=== PATIENT | female | born 1950 | race Caucasian/White ===

== ENCOUNTER → 2018-06-17 | Outpatient (CLI) | payer MEDICARE ==
--- NOTE | 2018-06-17 12:20 | MM ---
Reason for exam: clinical finding. History: Patient is postmenopausal. Family history of breast cancer in 2 maternal aunts. Benign excisional biopsy of the right breast, 1971. Physical Findings: Nurse Summary: 3 x 4cm nodule in the right breast at 12 o'clock (nurse ts). MG 3D Diag Mammo W/Cad GERSON Bilateral CC and MLO view(s) were taken. The breast tissue is heterogeneously dense. This may lower the sensitivity of mammography. Finding: There is a 26 mm spiculated irregular mass in the posterior middle position of the right breast. These results were verbally communicated with the patient and result sheet given to the patient on 06/17/18. ASSESSMENT: Incomplete: need additional imaging evaluation, BI-RAD 0 RECOMMENDATION: Ultrasound of the right breast.
--- NOTE | 2018-06-17 12:22 | USB ---
Reason for exam: additional evaluation requested from abnormal screening. History: Patient is postmenopausal. Family history of breast cancer in 2 maternal aunts. Benign excisional biopsy of the right breast, 1971. US Breast Limited RT Right limited breast ultrasound including focal area of concern, retroareolar and axilla demonstrates a 2.9 x 1.9 x 3.2cm irregular, solid, hypoechoic lesion at 12 o'clock BB and a 8mm lymph node at at the axilla, benign appearing. These results were verbally communicated with the patient and result sheet given to the patient on 06/17/18. ASSESSMENT: Highly Suspicious, BI-RAD 5 RECOMMENDATION: Ultrasound core biopsy of the right breast. Called Dr. Thompson with mammographic findings and has scheduled an appointment for the patient for 07/03/18 at 8:[address] Odom. Biopsy scheduled for 06/23/18 at 8 o'clock. PRELIMINARY REPORT CALLED AND FAXED TO DR. ODOM ON 06/17/18. [facility]
== END ==
LOC: RADMAMWWP 10:44
PROVIDERS: ATTEND Family Medicine
DX: N63.10 Unspecified lump in the right breast, unspecified quadrant (principal); N63.20 Unspecified lump in the left breast, unspecified quadrant
CPT/HCPCS: 77066; 76642; G0279; 77062

== ENCOUNTER → 2018-06-23 | Day surgery (SDC) | payer MEDICARE ==
[2018-06-23 07:16] VITALS: RESP 16; BMI 30.1
[2018-06-23 08:49] VITALS: BP 135/80; PULSE 70; TEMP 98.1
--- NOTE | 2018-06-23 09:48 | USB ---
EXAMINATION TYPE: US biopsy breast VAD RT, MG diagnostic mammo RT wo CAD DATE OF EXAM: 06/23/2018 CLINICAL HISTORY: 67-year-old female R92.8 Abn mammo. With palpable mass. Referred for ultrasound-guided breast biopsy TECHNIQUE: Ultrasound guided core biopsy of the right breast. COMPARISON: 06/17/2018 FINDINGS: The procedure of ultrasound guided core biopsy was explained to the patient. Benefits, alternatives, and risks were discussed. An informed consent was then obtained. The patient's ultrasound of 06/17/2013 was reviewed. The axilla was scanned at that time and a normal-appearing axillary lymph node was demonstrated. The patient was placed in supine positioning for imaging and for the procedure. The overlying skin was prepped and draped in usual sterile fashion. Lidocaine buffered with bicarbonate was used as anesthetic into the skin and subcutaneous tissue up to area of concern in the 12:00 right breast. Under ultrasound guidance, a 13-gauge vacuum assisted Mammotome Elite biopsy gun device was used to obtain 5 core samples. Following this, a wing clip was deposited in the lesion. The patient tolerated the procedure well without any immediate complication. The patient was kept in the radiology department for short stay after the procedure and then discharged home in stable condition. Postprocedure mammogram shows satisfactory clip, deposited at the margin of the mass. IMPRESSION: Successful, uncomplicated ultrasound guided core biopsy of suspicious, palpable 12:00 right breast mass, full pathology results to follow. Pathology Results: Malignant RIGHT BREAST, NEEDLE CORE BIOPSIES: Infiltrating adenocarcinoma, grade I/III. Breast ancillary studies are pending and will be reported in an addendum. See note. Recommendation Surgical consult of the right breast. SHY
== END | disposition home or self-care (01) ==
LOC: RADUSWWP 07:02
PROVIDERS: ATTEND Surgery
DX: C50.911 Malignant neoplasm of unspecified site of right female breast (principal)
CPT/HCPCS: 88305; 77065; 19083; A4648; J2001

== ENCOUNTER 2018-07-17 11:18 | Day surgery (SDC) | payer MEDICARE ==
[2018-07-15 10:04] VITALS: BMI 30.4
[~2018-07-17 11:18] MED LIST: DEXAMETHASONE SOD PHOSPHATE 10 MG/ML 1 ML VIAL IV ONE; HEPARIN SODIUM,PORCINE 5,000 UNIT/ML 1 ML VIAL SQ ONE; HYDROmorphone 0.5 MG/0.5 ML SYRINGE IVP PRN; LIDOCAINE 1% 20 ML VIAL (10MG/ML) FOR IV START INTRADERMA PRN; SCOPOLAMINE 1.5MG/72HR PATCH TRANSDERM ONE
[2018-07-17] MEDS ORDERED: ALPRAZolam 0.25 MG TAB PO ONE (11:40)
[2018-07-17 11:51] VITALS: RESP 16
[2018-07-17] MEDS: LACTATED RINGERS 1,000 ML IV SCH ×2 (12:18→13:57)
[2018-07-17] MEDS ORDERED: SODIUM BICARB 4% 5 ML VIAL (0.48 MEQ/ML) MISCELLANE ONE (12:56)
[2018-07-17] MEDS ORDERED: LIDOCAINE 1%-EPI 1:100,000 20 ML VIAL SQ ONE (12:56)
[2018-07-17] MEDS ORDERED: LIDOCAINE 1% INJ 10MG/ML (20 ML MDV) SQ ONE (12:56)
--- NOTE | 2018-07-17 13:31 | NM ---
EXAMINATION TYPE: NM sentinel node injection DATE OF EXAM: 07/17/2018 COMPARISON: NONE HISTORY: Right-sided breast cancer. TECHNIQUE AND FINDINGS: The procedure of sentinel lymph node injection was explained to the patient. The benefits, alternatives, and risks were discussed. An informed consent was then obtained. Overlying skin is cleaned with sterile alcohol. Following this, 517 uCi Tc99m Tilmanocept was inject ed in the outer aspect of the right nipple intradermally. The patient tolerated the procedure well without any immediate complication. The patient was kept in the radiology department for short stay after the procedure and then taken to surgery for surgical p rocedure what is presumed intraoperative gamma probe will be used for sentinel lymph node detection. IMPRESSION: Right breast radiotracer injection for sentinel node localization as above.
[2018-07-17] MEDS ORDERED: CLINDAMYCIN 600 MG in DEXTROSE 5% IN WATER 50 ML IVPB STA ×2 (13:33)
[2018-07-17] MEDS: ONDANSETRON 4 MG/2 ML VIAL IVP ONE ×2 (13:38→16:43)
[2018-07-17] MEDS ORDERED: METHYLENE BLUE 10 MG/ML (10 ML VIAL) MISCELLANE ONE ×2 (13:50→14:25)
[2018-07-17] MEDS ORDERED: PROPOFOL 10 MG/ML 20 ML VIAL IV ONE (13:58)
[2018-07-17] MEDS ORDERED: SUCCINYLCHOLINE CHLORIDE 100 MG/5 ML SYR IV ONE (13:58)
[2018-07-17] MEDS ORDERED: PHENYLEPHRINE-0.9% NACL SYG 1 MG/10 ML SYRINGE ONE (13:58)
[2018-07-17] MEDS ORDERED: HYDROmorphone (PF) 1 MG/ML ONE (13:58)
[2018-07-17] MEDS ORDERED: ePHEDrine SULFATE/0.9% NACL/PF 50 MG/5 ML SYRINGE IV ONE (13:58)
[2018-07-17] MEDS ORDERED: LIDOCAINE 1% INJ 10MG/ML (20 ML MDV) ONE (13:58)
[2018-07-17] MEDS ORDERED: fentaNYL (PF) 50 MCG/ML 2 ML AMP ONE (13:58)
[2018-07-17] MEDS ORDERED: MIDAZOLAM 2 MG/2 ML VIAL ONE (13:58)
[2018-07-17] MEDS ORDERED: LACTATED RINGERS 1,000 ML IV ONE (15:35)
--- NOTE | 2018-07-17 16:01 | USB ---
EXAM: Needle localization with wire placement. CLINICAL HISTORY: Biopsy-proven malignancy infiltrating adenocarcinoma of the right breast TECHNIQUE: Ultrasound-guided Needle localization with wire placement and surgical excision of area of concern in the right breast. Diagnostic right breast mammogram presurgical correlation after needle placement. Post specimen mammogram. COMPARISON: Prior mammogram and ultrasound June 23, 2018 and older studies. FINDINGS: The procedure of needle localization with wire placement and than surgical excision was exp lained to the patient. Benefits, alternatives, and risks were discussed. An informed consent was th en obtained. Because of large mass well-visualized on ultrasound, ultrasound-guided approach was performed. The ov erlying skin was prepped and draped in usual sterile fashion. Lidocaine buffered with bicarbonate wa s used as anesthetic into the skin. Lidocaine with epinephrine is used as anesthetic into the deeper tissue up to the level of area of concern. A 7 cm needle was used. It was placed via ultrasound edna dance. At this point, wire was placed and the needle was withdrawn. The wire was fixed to patient's skin. Postprocedure mammogram was performed due to stiffness of mass wanted to confirm wire remains within mass after needle was withdrawn as wire is less well-seen on ultrasound after removal of need le. Images confirm wire tip centrally in the mass on LM view. Images were marked for surgeon. The patient tolerated the procedure well without any immediate complication. The patient was kept in the radiology department for short stay after the procedure and then taken to surgery for surgical e xcision. Targeted wire, mass, and biopsy clip are all identified in specimen mammogram. The patient was kept in hospital for short stay after the procedure and then discharged home in stable condition. IMPRESSION: Successful, uncomplicated needle localization with wire placement and surgical excision o f targeted neoplasm in the right breast, full pathology results to follow.
[2018-07-17 16:10] VITALS: TEMP 97
[2018-07-17] MEDS ORDERED: NALOXONE 0.4 MG/ML 1 ML VIAL IV PRN (16:13)
[2018-07-17] MEDS ORDERED: HYDROcodone/APAP 5-325MG 1 EACH TAB PO PRN (16:13)
--- NOTE | 2018-07-17 16:17 | P.OP ---
Date of Procedure: 07/17/18 Procedure(s) Performed: REOPERATIVE DIAGNOSIS: Right breast cancer POSTOPERATIVE DIAGNOSIS: Same PROCEDURE: Right Breast wire localization lumpectomy with sentinel lymph node biopsy SURGEON: Ilene EBL: Minimal ANESTHESIA: General COMPLICATIONS: None OPERATIVE PROCEDURE: Patient was placed on the operating room table in the supine position. 2 mL of methylene blue was injected into the subareolar space. The breast was then massaged for 5 minutes. The breast was prepped and draped in usual sterile fashion. The right axilla was addressed at that time. The hot spot in the right axilla was identified. A small curvilinear incision was made using the scalpel. Dissection down through the subcutaneous tissues took place using electrocautery. Using the neoprobe I identified a total of 4 sentinel lymph nodes. None of these were blue in color. These were all removed and sent to pathology for close examination. Frozen sections from these lymph nodes were negative for metastatic disease. No bleeding was seen. The subcutaneous tissues were closed using 3-0 Vicryl sutures. The skin was closed using 4-0 Monocryl sutures. The wire entrance site was then addressed. This was present at the 10:00 location. A curvilinear incision was made adjacent to the wire entrance site. I followed the wire down into the breast tissue. The patient's mass was easily palpable in the upper inner quadrant. An adequate lumpectomy specimen then took place around the wire. Margins of 1- 2 cm worth were attempted to be achieved. The specimen was also painted the appropriate 6 colors. Clips were used to identify the lumpectomy cavity. The clip was confirmed to be within the lumpectomy specimen by radiology. The subcutaneous tissues were closed using 3-0 Vicryl sutures. The skin was closed using a running 4-0 Monocryl stitch. Skin glue and sterile dressings were then applied. DISPOSITION: Stable to recovery room
[2018-07-17 17:24] VITALS: BP 123/70; PULSE 79
== END 2018-07-17 17:45 | disposition home or self-care (01) ==
LOC: OR 11:18
PROVIDERS: ATTEND Surgery
DX: C50.211 Malignant neoplasm of upper-inner quadrant of right female breast (principal); Z17.0 Estrogen receptor positive status [ER+]; Z79.1 Long term (current) use of non-steroidal anti-inflammatories (NSAID); Z79.899 Other long term (current) drug therapy; Z88.0 Allergy status to penicillin
CPT/HCPCS: 88342; 88331; 88307; 88341; 77065; 76098; 19285; 38792; 19301; 38525; A9520; J2250; J1644; J1100; J2405; J2001; Q9968; J3010; J1170 ×2; J2370; J0330; J2704

== ENCOUNTER 2018-09-04 12:30 | Day surgery (SDC) | payer MEDICARE, OTHER ==
[~2018-09-04 12:30] MED LIST changes: +ONDANSETRON 4 MG/2 ML VIAL IVP ONE; +Pre Op ABX Message 1 EACH MISC MISCELLANE ONE; -SCOPOLAMINE 1.5MG/72HR PATCH TRANSDERM ONE
[2018-09-04] MEDS: LACTATED RINGERS 1,000 ML IV SCH (13:21)
[2018-09-04] MEDS ORDERED: CLINDAMYCIN 600 MG in DEXTROSE 5% IN WATER 50 ML IVPB STA ×2 (13:35)
[2018-09-04] MEDS ORDERED: MIDAZOLAM 2 MG/2 ML VIAL IV ONE (13:53)
[2018-09-04] MEDS ORDERED: SUCCINYLCHOLINE CHLORIDE 100 MG/5 ML SYR IV ONE (14:33)
[2018-09-04] MEDS ORDERED: MIDAZOLAM 2 MG/2 ML VIAL ONE (14:33)
[2018-09-04] MEDS ORDERED: ROPIVACAINE 5 MG/ML 30 ML VIAL ONE (14:33)
[2018-09-04] MEDS ORDERED: fentaNYL (PF) 50 MCG/ML 2 ML AMP ONE (14:33)
[2018-09-04] MEDS ORDERED: PROPOFOL 10 MG/ML 20 ML VIAL IV ONE (14:33)
[2018-09-04] MEDS ORDERED: LIDOCAINE 1% INJ 10MG/ML (20 ML MDV) ONE (14:33)
[2018-09-04] MEDS ORDERED: LACTATED RINGERS 1,000 ML IV ONE ×2 (15:29)
[2018-09-04] MEDS ORDERED: HYDROmorphone 1 MG/ML 1 ML SYRINGE IVP PRN (16:17)
[2018-09-04] MEDS ORDERED: NALOXONE 0.4 MG/ML 1 ML VIAL IV PRN (16:17)
[2018-09-04] MEDS: LACTATED RINGERS 1,000 ML IV ONE ×2 (16:18→16:23)
--- NOTE | 2018-09-04 16:26 | P.OP ---
Date of Procedure: 09/04/18 Procedure(s) Performed: PREOPERATIVE DIAGNOSIS: Right breast cancer POSTOPERATIVE DIAGNOSIS: Same PROCEDURE: Right breast simple mastectomy SURGEON: Ilene EBL: Minimal ANESTHESIA: General COMPLICATIONS: None OPERATIVE PROCEDURE: Patient was placed on the operating room table in the supine position. Using the skin marker the proposed incision sites were drawn out on the chest wall. The superior incision was first created. The incision was elliptical in nature encompassing the nipple areolar complex. Flaps were raised superiorly until the chest wall was reached. The mastectomy incision was then created inferiorly and flaps were again raised until the chest wall was reached. The breast was removed from the chest wall using electrocautery. Multiple vessels were divided using either electrocautery or the clip rheumatology nurse. Bleeding was also controlled during this case using the LigaSure device sparingly. In removing the breast from the lateral chest wall a single slightly enlarged lymph node was identified and palpated and removed with our mastectomy specimen. The area was irrigated. No bleeding was seen. A drain was placed beneath the flaps of the mastectomy incision. The subcutaneous tissues were then closed using 3-0 Vicryl sutures and the skin was closed using a running 4-0 Monocryl stitch. Prineo dressing was used along the entire length of the incision with Dermabond. The drain was sutured in place using a 3 -0 silk stitch. DISPOSITION: Stable to recovery room
[2018-09-04] MEDS: FAMOTIDINE 20 MG TAB PO SCH (20:44)
[2018-09-04] MEDS: D5-0.45% NACL WITH KCL 20MEQ/L 1,000 ML IV SCH (20:44)
[2018-09-04] MEDS: DOCUSATE 100 MG CAP PO SCH (20:45)
--- NOTE | 2018-09-04 21:29 | P.ONQ ---
Anesthesiology Proc Note - PNB - Peripheral Nerve Block Performed Right Other (see comment) Single Time Out Performed: Yes (pec1 and pec2) Procedure Start Time: 13:54 Procedure Stop Time: 13:59 Indication: Acute Post-Operative Pain, Requested by physician Sedation Type: Sedate with meaningful contact maintained Preparation: Sterile Prep Position: Supine Needle Size: 50mm (2") Needle Gauge: 21 Technique: Ultrasound (ropi .5% 15cc each block) Injectate: Other (see comment) Adjunct: Epinephrine (see comment for dilution ratio) Blood Aspirated: No Pain Paresthesia on Injection Noted: No Resistance on Injection: Normal Events: Uneventful and Well Tolerated
[2018-09-04 21:35] VITALS: BMI 35.0
[2018-09-04] MEDS: HYDROcodone/APAP 5-325MG 1 EACH TAB PO PRN (23:15)
[2018-09-05] MEDS: HEPARIN SODIUM,PORCINE 5,000 UNIT/ML 1 ML VIAL SQ SCH ×2 (00:13→08:14)
[2018-09-05] MEDS: LACTATED RINGERS 1,000 ML IV SCH (06:02)
[2018-09-05] MEDS: D5-0.45% NACL WITH KCL 20MEQ/L 1,000 ML IV SCH (06:12)
[2018-09-05] MEDS: HYDROcodone/APAP 5-325MG 1 EACH TAB PO PRN ×3 (06:15→15:34)
[2018-09-05] MEDS: FAMOTIDINE 20 MG TAB PO SCH (08:13)
[2018-09-05] MEDS: DOCUSATE 100 MG CAP PO SCH (08:13)
--- NOTE | 2018-09-05 14:04 | P.CONS ---
History of Present Illness - Reason for Consult Consult date: 09/05/18 Medical management of tobaccoism - History of Present Illness This is a 67-year-old white female, my practice. She was diagnosed with right breast cancer, estrogen positive receptors. She is status post right simple mastectomy day 1. She had a pain pump placed. Her pain is controlled at this time. She denies any chest pains, pressures, shortness of breath, nausea or vomiting. She is resting comfortably in hospital bed tolerating her lunch. Review of Systems All systems: negative Past Medical History Past Medical History: Cancer, Osteoarthritis (OA) Additional Past Medical History / Comment(s): RT BREAST CANCER. Left LEG & rt knee pain FROM ACCIDENT IN 2009 USES CANE. History of Any Multi-Drug Resistant Organisms: None Reported Past Surgical History: Appendectomy, Orthopedic Surgery Additional Past Surgical History / Comment(s): NL WITH LUMPECTOMY ON 07/17/18. RT BREAST BX 06/23/18. benign lump from neck removed 2013. left leg and ankle orif, with metal, later removed. Past Anesthesia/Blood Transfusion Reactions: Postoperative Nausea & Vomiting ( PONV) Additional Past Anesthesia/Blood Transfusion Reaction / Comm: HARD TIME WAKING UP Past Psychological History: Depression Additional Psychological History / Comment(s): . Smoking Status: Former smoker Past Alcohol Use History: Occasional Additional Past Alcohol Use History / Comment(s): has quit as of 09/04/18. has been using chantix Past Drug Use History: None Reported - Past Family History Sister(s) Family Medical History: Cancer Additional Family Medical History / Comment(s): one sister ovarian, one sister colon and lung ca Father Family Medical History: Cancer Additional Family Medical History / Comment(s): bladder Brother(s) Family Medical History: Cancer Additional Family Medical History / Comment(s): Lung Medications and Allergies Home Medications Medication Instructions Recorded Confirmed Type Acetaminophen [Tylenol] 325 - 650 mg PO Q4H PRN 07/15/18 09/04/18 History Varenicline [Chantix Starter Pack] 0.5 mg PO BID 09/01/18 09/04/18 History Ibuprofen [Motrin] 400 mg PO Q6HR PRN 09/04/18 09/04/18 History Allergies Allergy/AdvReac Type Severity Reaction Status Date / Time Penicillins Allergy Severe Anaphylaxis Verified 09/04/18 18:34 Physical Exam Vitals: Vital Signs Temp Pulse Pulse Pulse Resp BP BP 09/05/18 12:15 98.0 F 55 L 18 109/53 09/05/18 08:20 97.6 F 70 20 114/65 09/05/18 06:19 97.5 F L 69 18 122/72 09/05/18 00:18 98.4 F 87 18 103/67 09/05/18 00:00 87 18 09/04/18 22:43 91 18 117/59 09/04/18 22:15 91 102/68 09/04/18 22:10 94 134/72 09/04/18 22:00 87 127/63 09/04/18 21:58 87 18 09/04/18 21:45 97 146/68 09/04/18 21:30 84 134/65 09/04/18 21:15 85 119/80 09/04/18 21:11 18 09/04/18 21:00 90 134/51 09/04/18 20:45 91 128/67 09/04/18 20:30 87 134/59 09/04/18 20:15 87 138/97 09/04/18 20:00 89 137/61 09/04/18 19:50 85 134/71 09/04/18 19:30 93 18 133/87 09/04/18 19:18 87 18 138/97 09/04/18 19:03 89 18 137/61 09/04/18 18:50 85 18 134/71 09/04/18 18:33 97.8 F 89 18 133/87 09/04/18 17:45 85 16 149/82 09/04/18 17:15 84 16 150/78 09/04/18 17:00 87 16 140/78 09/04/18 16:45 84 16 139/72 09/04/18 16:30 97.6 F 94 16 137/71 09/04/18 14:10 67 16 134/69 Pulse Ox 09/05/18 12:15 95 09/05/18 08:20 97 09/05/18 06:19 96 09/05/18 00:18 95 09/05/18 00:00 09/04/18 22:43 93 L 09/04/18 22:15 93 L 09/04/18 22:10 93 L 09/04/18 22:00 94 L 09/04/18 21:58 09/04/18 21:45 93 L 09/04/18 21:30 93 L 09/04/18 21:15 95 09/04/18 21:11 09/04/18 21:00 95 09/04/18 20:45 97 09/04/18 20:30 94 L 09/04/18 20:15 94 L 09/04/18 20:00 94 L 09/04/18 19:50 94 L 09/04/18 19:30 94 L 09/04/18 19:18 94 L 09/04/18 19:03 94 L 09/04/18 18:50 94 L 09/04/18 18:33 95 09/04/18 17:45 97 09/04/18 17:15 95 09/04/18 17:00 95 09/04/18 16:45 97 09/04/18 16:30 96 09/04/18 14:10 100 Intake and Output 09/04/18 09/05/18 09/05/18 22:59 06:59 14:59 Intake Total 740 540 Output Total 470 1065 102 Balance 270 -525 -102 Intake: IV 200 Oral 540 540 Output: Drainage 100 65 102 Right Chest 100 65 102 Urine 250 1000 Estimated Blood Loss 120 Other: Voiding Method Toilet Toilet # Voids 600 300 1 GENERAL: Well-appearing, well-nourished and in no acute distress. There is a dressing and drain to her right breast. HEAD: Atraumatic, normocephalic. EYES: Pupils equal round and reactive to light, extraocular movements intact, sclera anicteric, conjunctiva are normal. ENT:nares patent, oropharynx clear without exudates. Moist mucous membranes. NECK: Normal range of motion, supple without lymphadenopathy or JVD, no thyromegaly LUNGS: Breath sounds clear to auscultation bilaterally and equal. No wheezes rales or rhonchi. HEART: Regular rate and rhythm without murmurs, rubs or gallops.S1S2 Normal ABDOMEN: Soft, nontender, normoactive bowel sounds. No guarding, no rebound. No masses appreciated. EXTREMITIES: Normal range of motion, no pitting or edema. No clubbing or cyanosis. NEUROLOGICAL: Cranial nerves II through XII grossly intact. Normal speech, normal gait. PSYCH: Normal mood, normal affect. SKIN: Warm, Dry, normal turgor, no rashes or lesions noted. Assessment and Plan (1) Breast cancer, right breast Current Visit: Yes Status: Acute Code(s): C50.911 - MALIGNANT NEOPLASM OF UNSP SITE OF RIGHT FEMALE BREAST SNOMED Code(s): 771322645 (2) Estrogen receptor positive neoplasm Current Visit: Yes Status: Acute Code(s): D49.9 - NEOPLASM OF UNSPECIFIED BEHAVIOR OF UNSPECIFIED SITE; Z17.0 - ESTROGEN RECEPTOR POSITIVE STATUS [ER+] SNOMED Code(s): 816851329 (3) Tobacco dependence Current Visit: Yes Status: Acute Code(s): F17.200 - NICOTINE DEPENDENCE, UNSPECIFIED, UNCOMPLICATED SNOMED Code(s): 31646308 Plan: Medically she is doing well. She is tolerating her diet and her pain is controlled. Surgery will write her for postoperative pain medications. At this time she is remain smoke free. She is on Chantix for this. She may resume her home medications She is medically cleared for discharge to follow up in our office in 1-2 weeks. Thank you for allowing me to see this patient in her care.
[2018-09-05 16:16] VITALS: BP 122/73; PULSE 82; RESP 20; TEMP 97.7
--- NOTE | 2018-09-05 17:14 | P.DS ---
Providers Expected date of discharge: 09/05/18 Attending physician: Joaquim Odom Consults: 09/04/18 16:17 Consult Physician Routine Consulting Provider: Carlyle Thompson Consult Reason/Comments: med mgmt Do you want consulting provider notified?: Yes Primary care physician: Carlyle Thompson Hospital Course: Patient admitted yesterday after right simple mastectomy. This was performed for positive margins after recent right breast lumpectomy. Patient is done well overnight. Minimal drain output. Pain is been fairly well-controlled. Incision is doing well today. We'll discharged today with plans for outpatient follow-up in 1 week. Plan - Discharge Summary Discharge Rx Participant: Yes New Discharge Prescriptions: No Action Acetaminophen [Tylenol] 325 - 650 mg PO Q4H PRN PRN Reason: Pain Varenicline [Chantix Starter Pack] 0.5 mg PO BID Ibuprofen [Motrin] 400 mg PO Q6HR PRN PRN Reason: Pain Discharge Medication List Acetaminophen [Tylenol] 325 - 650 mg PO Q4H PRN 07/15/18 [History] Varenicline [Chantix Starter Pack] 0.5 mg PO BID 09/01/18 [History] Ibuprofen [Motrin] 400 mg PO Q6HR PRN 09/04/18 [History] Follow up Appointment(s)/Referral(s): Joaquim Odom MD [Medical Doctor] - 09/11/18 11:00 am Patient Instructions/Handouts: Hydrocodone/Acetaminophen (By mouth) Activity/Diet/Wound Care/Special Instructions: Regular diet, fluids are always encouraged. follow up as directed. call office for any fevers >100.3, chills, increased pain not covered by pain meds, increased redness or discolored drainage from incision or concerning drainage from CONRAD drain or any concerns. May shower tomorrow. leave tape in place. no strenuous activity or lifting. be up and moving. wear support bra. continue to take deep breaths and cough supporting incision. May drive, if not on narcotics. Last received Norco5 at 3:30 empty drains as instructed, see conrad drain instruction sheet. record output. good hand washing before and after.
== END 2018-09-05 16:25 | disposition home or self-care (01) ==
LOC: OR 12:30 → 6PED 17:02 → OR 09-05 16:25
PROVIDERS: ATTEND Surgery
DX: C50.211 Malignant neoplasm of upper-inner quadrant of right female breast (principal); Z17.0 Estrogen receptor positive status [ER+]; F32.9 Major depressive disorder, single episode, unspecified; M19.90 Unspecified osteoarthritis, unspecified site; F17.200 Nicotine dependence, unspecified, uncomplicated; Z85.51 Personal history of malignant neoplasm of bladder; Z80.41 Family history of malignant neoplasm of ovary; Z80.0 Family history of malignant neoplasm of digestive organs; Z80.1 Family history of malignant neoplasm of trachea, bronchus and lung; Z79.899 Other long term (current) drug therapy; Z79.1 Long term (current) use of non-steroidal anti-inflammatories (NSAID); Z88.0 Allergy status to penicillin
CPT/HCPCS: 19303; 64450; 97162; 88309; J2250; J1644 ×2; J1100; J2405; J2001; J3010; J2795; J0330; J2704

== ENCOUNTER 2018-10-19 14:47 | Emergency (ER) | payer MEDICARE, OTHER ==
[2018-10-19 15:10] VITALS: BP 131/70; PULSE 67; RESP 18; TEMP 98.2
--- NOTE | 2018-10-19 15:29 | ED ---
General Adult HPI - General Chief complaint: Recheck/Abnormal Lab/Rx Stated complaint: Right breast swelling Time Seen by Provider: 10/19/18 15:10 Source: patient, RN notes reviewed Mode of arrival: ambulatory Limitations: no limitations - History of Present Illness Initial comments: Patient is a pleasant 67-year-old female presenting to the emergency department with concern for right breast swelling. Patient did have mastectomy done 6 weeks ago. Patient just had drain tube removed 4 days ago. Patient felt somewhat ill and febrile at that time and her doctor put her on Bactrim. No fevers for the past several days. Patient states there was some mild redness however that has resolved. Patient states there seems to be some fluid accumulation that she is concerned about. - Related Data Home Medications Medication Instructions Recorded Confirmed Ascorbic Acid [Vitamin C] 500 mg PO DAILY 10/19/18 10/19/18 Calcium/Magnesium/Zinc 1 tab PO DAILY 10/19/18 10/19/18 [Xspislp-Plucdoqjf-Sjpd Tablet] Meloxicam [Mobic] 7.5 mg PO DAILY 10/19/18 10/19/18 Multivitamin,Therapeutic [Thera] 1 tab PO DAILY 10/19/18 10/19/18 Sulfamethox-Tmp 800-160Mg [Bactrim 1 tab PO Q12HR 10/19/18 10/19/18 DS 800-160 mg] Allergies Allergy/AdvReac Type Severity Reaction Status Date / Time Penicillins Allergy Severe Anaphylaxis Verified 10/19/18 16:00 Review of Systems ROS Statement: Those systems with pertinent positive or pertinent negative responses have been documented in the HPI. ROS Other: All systems not noted in ROS Statement are negative. Constitutional: Reports: as per HPI Eyes: Denies: eye pain ENT: Denies: ear pain Respiratory: Denies: cough Cardiovascular: Reports: as per HPI Endocrine: Denies: fatigue Gastrointestinal: Denies: abdominal pain Genitourinary: Denies: dysuria Musculoskeletal: Denies: back pain Skin: Denies: rash Neurological: Denies: weakness Past Medical History Past Medical History: Cancer, Osteoarthritis (OA) Additional Past Medical History / Comment(s): RT BREAST CANCER. Left LEG & rt knee pain FROM ACCIDENT IN 2009 USES CANE. History of Any Multi-Drug Resistant Organisms: None Reported Past Surgical History: Appendectomy, Orthopedic Surgery Additional Past Surgical History / Comment(s): NL WITH LUMPECTOMY ON 07/17/18. RT BREAST BX 06/23/18. benign lump from neck removed 2013. left leg and ankle orif, with metal, later removed. RT breast mastectomy 09/04/2018 Past Anesthesia/Blood Transfusion Reactions: Postoperative Nausea & Vomiting (PONV) Additional Past Anesthesia/Blood Transfusion Reaction / Comment(s): HARD TIME WAKING UP Past Psychological History: Depression Smoking Status: Former smoker Past Alcohol Use History: Occasional Past Drug Use History: None Reported - Past Family History Sister(s) Family Medical History: Cancer Additional Family Medical History / Comment(s): one sister ovarian, one sister colon and lung ca Father Family Medical History: Cancer Additional Family Medical History / Comment(s): bladder Brother(s) Family Medical History: Cancer Additional Family Medical History / Comment(s): Lung General Exam Limitations: no limitations General appearance: alert, in no apparent distress Head exam: Present: atraumatic Eye exam: Present: normal appearance Neck exam: Present: normal inspection Respiratory exam: Present: normal lung sounds bilaterally Cardiovascular Exam: Present: regular rate, normal rhythm GI/Abdominal exam: Present: soft. Absent: tenderness Extremities exam: Present: normal inspection. Absent: pedal edema, calf tenderness Neurological exam: Present: alert Psychiatric exam: Present: normal affect, normal mood Skin exam: Present: other (Right last with mastectomy scar. No erythema. No warmth. There is some mild diffuse swelling with fluid shift.) Course Vital Signs 10/19/18 15:01 Temperature 98.2 F Pulse Rate 67 Respiratory 18 Rate Blood Pressure 131/70 O2 Sat by Pulse 98 Oximetry Medical Decision Making - Medical Decision Making Patient reevaluated and resting comfortably in bed. Case was discussed in detail with Dr. Walter who is comfortable with discharge and will follow up with patient. Patient updated. - Lab Data Result diagrams: 10/19/18 15:45 Lab Results 10/19/18 Range/Units 15:45 WBC 7.6 (3.8-10.6) k/uL RBC 4.39 (3.80-5.40) m/uL Hgb 14.0 (11.4-16.0) gm/dL Hct 43.0 (34.0-46.0) % MCV 97.8 (80.0-100.0) fL MCH 31.9 (25.0-35.0) pg MCHC 32.6 (31.0-37.0) g/dL RDW 12.6 (11.5-15.5) % Plt Count 240 (150-450) k/uL Neutrophils % 66 % Lymphocytes % 22 % Monocytes % 7 % Eosinophils % 3 % Basophils % 0 % Neutrophils # 5.0 (1.3-7.7) k/uL Lymphocytes # 1.6 (1.0-4.8) k/uL Monocytes # 0.5 (0-1.0) k/uL Eosinophils # 0.2 (0-0.7) k/uL Basophils # 0.0 (0-0.2) k/uL - Radiology Data Radiology results: report reviewed (Ultrasound of the right breast shows nonspecific fluid collection.) Disposition Clinical Impression: Postoperative seroma Disposition: HOME SELF-CARE Condition: Stable Instructions (If sedation given, give patient instructions): Seroma (DC) Additional Instructions: Please call tomorrow Dr. Walter for follow-up this week. Return for fevers, increased pain, increased swelling, redness, warmth, worsening symptoms or other concerns. Continue previously prescribed antibiotics. Is patient prescribed a controlled substance at d/c from ED?: No Referrals: Carlyle Thompson MD [Primary Care Provider] - 1-2 days Joaquim Odom MD [Medical Doctor] - 1-2 days Time of Disposition: 17:17
[2018-10-19 16:07] LABS: Basophils % (A) 0 %; Eosinophils # (A) 0.2 k/uL (0-0.7); Eosinophils % (A) 3 %; Lymphocytes # (A) 1.6 k/uL (1.0-4.8); Lymphocytes % (A) 22 %; MCH 31.9 pg (25.0-35.0); MCHC 32.6 g/dL (31.0-37.0); MCV 97.8 fL (80.0-100.0); Mean Platelet Volume 6.6; Monocytes # (A) 0.5 k/uL (0-1.0); Monocytes % (A) 7 %; Neutrophils % (A) 66 %; Platelet Count 240 k/uL (150-450); RBC 4.39 m/uL (3.80-5.40); RDW 12.6 % (11.5-15.5); WBC 7.6 k/uL (3.8-10.6)
--- NOTE | 2018-10-19 16:39 | USB ---
EXAMINATION TYPE: US breast limited RT DATE OF EXAM: 10/19/2018 COMPARISON: NONE CLINICAL HISTORY: Edema, evaluate for abscess. History of breast cancer with mastectomy on September 04. Drainage tube removed on October 15. Breas t was red and sore on Saturday, and patient started antibiotics. Breast is red and raised just anter ior to mastectomy scar. Scanned just anterior to mastectomy scar, there is a 15.6 x 3.4 cm fluid collection with some interna l echoes. IMPRESSION: Large fluid collection in the area of the mastectomy scar consistent with chronic hemato ma or seroma or abscess. Follow-up is recommended.
== END 2018-10-19 17:40 | disposition home or self-care (01) ==
LOC: EC 14:47
DX: M19.90 Unspecified osteoarthritis, unspecified site (principal); M96.843 Postprocedural seroma of a musculoskeletal structure following other procedure; Z85.3 Personal history of malignant neoplasm of breast; Z90.11 Acquired absence of right breast and nipple; Z87.891 Personal history of nicotine dependence; Z79.1 Long term (current) use of non-steroidal anti-inflammatories (NSAID); Z88.0 Allergy status to penicillin
CPT/HCPCS: 36415; 85025; 87040; 99284

== ENCOUNTER → 2019-02-02 | Outpatient (CLI) | payer MEDICARE, OTHER ==
--- NOTE | 2019-02-02 14:10 | BD ---
EXAMINATION TYPE: Axial Bone Density DATE OF EXAM: 02/02/2019 COMPARISON: NONE CLINICAL HISTORY: Breast cancer, postmenopausal female with hormonal replacement therapy Height: 65.5 Weight: 220 FRAX RISK QUESTIONS: Alcohol (3 or more units per day): no Family History (Parent hip fracture): no Glucocorticoids (More than 3mos): no (Ex: prednisone, prednisolone, methylprednisolone, dexamethasone, and hydrocortisone). History of Fracture in Adulthood: yes, left lower leg Secondary Osteoporosis: 1. Type 1 Diabetes: no 2. Hyperthyroidism: no 3. Menopause before 45: no 4. Malnutrition: no 5. Chronic liver disease: no Rheumatoid Arthritis: no Current Tobacco Use: yes RISK FACTORS HISTORY OF: Family History of Osteoporosis: unsure Active: yes Diet low in dairy products/other sources of calcium: no Postmenopausal woman: yes Take estrogen and/or progesterone medications: no Lost more than 2 inches in height since high school: yes Frequent falls: no Poor Health: breast CA Hyperparathyroidism: no Adrenal Insufficiency: no MEDICATIONS: Prednisone or other steroids: no Thyroid Medications: no Osteoporosis Medications: no Additional Medications: multivitamin, zinc with calcium, Vitamin D recently started anastrozole Additional History: breast CA 2018/radiation EXAM MEASUREMENTS: Bone mineral densitometry was performed using the [employer] System. Bone mineral density as measured about the Lumbar spine is: ----- L1-L4(G/cm2): 0.976 T Score Values are as follows: ----- L2: -2.0 ----- L3: -1.4 ----- L4: -1.4 ----- L1-4 -1.7 Bone mineral density BASELINE Bone mineral density about the R hip (g/cm2): 0.799 Bone mineral density about the L hip (g/cm2): 0.833 T Score values are as follows: -----R Neck: -1.7 -----L Neck: -1.5 -----R Total: -2.5 -----L Total: -1.5 Bone mineral density BASELINE IMPRESSION: Osteopenia (T Score between -2.5 and -1). There is slightly increased risk of fracture and the patient may be considered for treatment. Re-Screen 2-5 years. NOTE: T-SCORE=SD OF THE YOUNG ADULT MEAN.
== END | disposition home or self-care (01) ==
LOC: RADBDWWP 13:06
PROVIDERS: ATTEND Internal Medicine Hematology & Oncology
DX: C50.111 Malignant neoplasm of central portion of right female breast (principal); M85.80 Other specified disorders of bone density and structure, unspecified site; Z79.890 Hormone replacement therapy
CPT/HCPCS: 77080

== ENCOUNTER → 2019-06-17 | Outpatient (CLI) | payer MEDICARE, OTHER ==
--- NOTE | 2019-06-17 12:12 | MM ---
Reason for exam: additional evaluation requested from prior study. Last mammogram was performed 11 months ago. History: Patient is postmenopausal and has history of breast cancer at age 67. Family history of breast cancer in 2 maternal aunts. Mastectomy of the right breast, August 2018. Malignant US breast localization RT of the right breast, July 17, 2018. Lumpectomy of the right breast, July 17, 2018. Radiation therapy of the right breast, 2018. Malignant US biopsy breast VAD RT of the right breast, June 23, 2018. Benign excisional biopsy of the right breast, 1971. Physical Findings: Nurse did not find any significant physical abnormalities on exam. MG 3D Diag Mammo W/Cad LT CC and MLO view(s) were taken of the left breast. Prior study comparison: July 17, 2018, right breast MG diagnostic mammo RT wo CAD. June 23, 2018, right breast MG diagnostic mammo RT wo CAD. The breast tissue is heterogeneously dense. This may lower the sensitivity of mammography. There are round oval circumscribed stable left upper outer quadrant and lower inner quadrant 5mm masses back to 2018. No suspicious abnormality. These results were verbally communicated with the patient and result sheet given to the patient on 06/17/19. ASSESSMENT: Benign, BI-RAD 2 RECOMMENDATION: Follow-up diagnostic mammogram of the left breast in 1 year.
== END | disposition home or self-care (01) ==
LOC: RADMAMWWP 09:34
PROVIDERS: ATTEND Surgery
DX: R92.8 Other abnormal and inconclusive findings on diagnostic imaging of breast (principal)
CPT/HCPCS: 77061; 77065

== ENCOUNTER → 2020-05-02 | Outpatient (CLI) | payer MEDICARE, OTHER ==
[2020-05-02 15:30] LABS: HCT 49.9 % (34.0-46.0); HGB 16.1 gm/dL (11.4-16.0); MCH 33.5 pg (25.0-35.0); MCHC 32.2 g/dL (31.0-37.0); MCV 104.1 fL (80.0-100.0); Macrocytosis Slight; Mean Platelet Volume 7.2; Platelet Count 255 k/uL (150-450); RBC 4.79 m/uL (3.80-5.40); RDW 12.4 % (11.5-15.5); WBC 6.8 k/uL (3.8-10.6)
[2020-05-02 15:35] LABS: ALT 19 U/L (4-34); AST 25 U/L (14-36); African American GFR (CKD) >90 (>60 ml/min/1.73 sqM); Albumin 4.4 g/dL (3.5-5.0); Alkaline Phosphatase 121 U/L (38-126); Anion Gap 7 mmol/L; Blood Urea Nitrogen 15 mg/dL (7-17); Calcium 9.9 mg/dL (8.4-10.2); Carbon Dioxide 22 mmol/L (22-30); Chloride 108 mmol/L (98-107); Glucose 88 mg/dL (74-99); Non-African American GFR(CKD) 87 (>60 ml/min/1.73 sqM); Potassium 4.2 mmol/L (3.5-5.1); Sodium 137 mmol/L (137-145); Total Bilirubin 0.8 mg/dL (0.2-1.3); Total Protein 7.6 g/dL (6.3-8.2)
[2020-05-02 15:41] LABS: Prothrombin Time 9.9 sec (9.0-12.0)
[2020-05-02 16:03] LABS: Appearance,Urine Clear (Clear); Bilirubin,Urine Negative (Negative); Blood,Urine Negative (Negative); Color,Urine Yellow; Glucose,Urine (UA) Negative (Negative); Ketones,Urine Negative (Negative); Leukocyte Esterase,Urine Trace (Negative); Mucus,Urine Rare /hpf; Nitrite,Urine Negative (Negative); PH, Urine 5.5 (5.0-8.0); Protein,Urine Negative (Negative); RBC,Urine 1 /hpf (0-5); Specific Gravity,Urine 1.013 (1.001-1.035); Urobilinogen,Urine <2.0 mg/dL (<2.0); WBC,Urine 2 /hpf (0-5)
== END | disposition home or self-care (01) ==
LOC: LABPAT 13:54
PROVIDERS: ATTEND Orthopaedic Surgery
DX: Z01.818 Encounter for other preprocedural examination (principal); Z01.812 Encounter for preprocedural laboratory examination
CPT/HCPCS: 80053; 81001; 85027; 85610; 85730; 87070; 93005

== ENCOUNTER → 2020-06-20 | Outpatient (CLI) | payer MEDICARE, OTHER ==
--- NOTE | 2020-06-20 08:52 | MM ---
Reason for exam: additional evaluation requested from prior study. Last mammogram was performed 1 year ago. History: Patient is postmenopausal and has history of breast cancer at age 67. Family history of breast cancer in 2 maternal aunts. Mastectomy of the right breast, August 2018. Malignant US breast localization RT of the right breast, July 17, 2018. Lumpectomy of the right breast, July 17, 2018. Radiation therapy of the right breast, 2018. Malignant US biopsy breast VAD RT of the right breast, June 23, 2018. Benign excisional biopsy of the right breast, 1971. Physical Findings: Nurse did not find any significant physical abnormalities on exam. MG 3D Diag Mammo W/Cad LT CC and MLO view(s) were taken of the left breast. Prior study comparison: June 17, 2019, left breast MG 3d diag mammo w/cad LT. July 17, 2018, right breast MG diagnostic mammo RT wo CAD. The breast tissue is heterogeneously dense. This may lower the sensitivity of mammography. There is chronic nodularity in the left breast. There is no dominant lesion. No significant new findings when compared with previous films. These results were verbally communicated with the patient and result sheet given to the patient on 06/20/20. ASSESSMENT: Benign, BI-RAD 2 RECOMMENDATION: Follow-up diagnostic mammogram of the left breast in 1 year.
== END | disposition home or self-care (01) ==
LOC: RADMAMWWP 07:37
PROVIDERS: ATTEND Surgery
DX: R92.8 Other abnormal and inconclusive findings on diagnostic imaging of breast (principal)
CPT/HCPCS: 77065; G0279; 77061

== ENCOUNTER → 2022-03-19 | Outpatient (CLI) | payer MEDICARE, OTHER ==
[2022-03-19 12:36] LABS: Partial Thromboplastin Time 23.6 sec (22.0-30.0); Prothrombin Time 10.4 sec (9.0-12.0)
[2022-03-19 18:10] LABS: HCT 48.9 % (37.2-46.3); HGB 16.2 g/dL (12.0-15.0); MCH 32.7 pg (27.0-32.0); MCHC 33.1 g/dL (32.0-37.0); MCV 98.6 fL (80.0-97.0); Mean Platelet Volume 9.8 fL (9.5-12.2); NRBC Per 100 WBC 0 /100 WBCS (0.0-0.0); Platelet Count 242 X 10*3/uL (140-440); RBC 4.96 X 10*6/uL (4.10-5.20); RDW 13.3 % (11.5-14.5); WBC 6.88 X 10*3/uL (4.50-10.00)
[2022-03-19 18:17] LABS: African American GFR (CKD) 101.7 (60.0-200.0); Albumin 4.6 g/dL (3.8-4.9); Albumin/Globulin Ratio 1.48 (1.60-3.17); BUN/Creat Ratio 28.14 Ratio (12.00-20.00); Blood Urea Nitrogen 19.7 mg/dL (9.0-27.0); Calcium 9.9 mg/dL (8.7-10.3); Globulin 3.1 g/dL (1.6-3.3); Non-African American GFR(CKD) 87.8 (60.0-200.0); Potassium 4.2 mmol/L (3.5-5.5); Total Bilirubin 0.3 mg/dL (0.30-1.20); Total Protein 7.7 g/dL (6.2-8.2)
[2022-03-19 23:50] LABS: Appearance,Urine Clear (Clear); Bilirubin,Urine Negative (Negative); Blood,Urine Negative (Negative); Color,Urine Yellow (Yellow); Ketones,Urine Negative (Negative); Nitrite,Urine Negative (Negative); Specific Gravity,Urine 1.007 (1.001-1.030); Urobilinogen,Urine 0.2 (0.2,1.0)
== END | disposition home or self-care (01) ==
LOC: LABPAT 03-16 15:00
PROVIDERS: ATTEND Orthopaedic Surgery
DX: Z01.818 Encounter for other preprocedural examination (principal); I49.1 Atrial premature depolarization; R94.31 Abnormal electrocardiogram [ECG] [EKG]
CPT/HCPCS: 80053; 81003; 85027; 85610; 85730; 87070; 93005

== ENCOUNTER 2022-04-17 08:54 | Observation (INO) | payer MEDICARE, OTHER ==
[2022-04-12 13:44] VITALS: BMI 35.5
[~2022-04-17 08:54] MED LIST changes: +ACETAMINOPHEN TAB 500 MG TAB PO PRN; -DEXAMETHASONE SOD PHOSPHATE 10 MG/ML 1 ML VIAL IV ONE; +GABAPENTIN 300 MG CAP PO PRN; -HEPARIN SODIUM,PORCINE 5,000 UNIT/ML 1 ML VIAL SQ ONE; -LIDOCAINE 1% 20 ML VIAL (10MG/ML) FOR IV START INTRADERMA PRN; +MAGNESIUM HYDROXIDE 2,400 MG/10 ML CUP PO PRN; +MELOXICAM 7.5 MG TAB PO PRN; +NA PHOS,M-B/NA PHOS,DI-BA 133 ML ENEMA RECTAL PRN; +NALOXONE 0.4 MG/ML 1 ML VIAL IV PRN; -ONDANSETRON 4 MG/2 ML VIAL IVP ONE; +ONDANSETRON 4 MG/2 ML VIAL IVP PRN; -Pre Op ABX Message 1 EACH MISC MISCELLANE ONE; +TRANEXAMIC ACID IN NACL,ISO-OS 1,000 MG in SALINE 1 100ML.BAG IVPB PRN; +bisacodyL 10 MG SUPP RECTAL PRN
[2022-04-17] MEDS: LACTATED RINGERS 1,000 ML IV SCH (09:26)
[2022-04-17] MEDS ORDERED: fentaNYL (PF) 50 MCG/ML 2 ML AMP IVP ONE ×2 (09:33→09:34)
[2022-04-17] MEDS ORDERED: MIDAZOLAM 2 MG/2 ML VIAL IVP ONE (09:33)
[2022-04-17] MEDS: DEXAMETHASONE SOD PHOSPHATE 4 MG/ML 1 ML VIAL IV ONE ×2 (09:45→14:08)
[2022-04-17] MEDS: ONDANSETRON 4 MG/2 ML VIAL IVP ONE ×2 (09:45→14:08)
[2022-04-17] MEDS ORDERED: TRANEXAMIC ACID IN NACL,ISO-OS 1,000 MG/100 ML BAG ONE (09:51)
[2022-04-17] MEDS ORDERED: fentaNYL (PF) 50 MCG/ML 2 ML AMP ONE (09:51)
[2022-04-17] MEDS ORDERED: PROPOFOL 10 MG/ML 20 ML VIAL IV ONE (09:51)
[2022-04-17] MEDS ORDERED: MIDAZOLAM 2 MG/2 ML VIAL ONE (09:51)
[2022-04-17] MEDS ORDERED: PHENYLEPHRINE-0.9% NACL SYG 1,000 MCG/10 ML SYRINGE ONE (09:51)
[2022-04-17] MEDS ORDERED: SODIUM CHLORIDE 0.9% (PF) 10 ML VIAL ONE (09:51)
[2022-04-17] MEDS ORDERED: ROPIVACAINE 5 MG/ML 30 ML VIAL ONE (09:51)
[2022-04-17] MEDS ORDERED: ceFAZolin 1,000 MG in SODIUM CHLORIDE 0.9% 1,000 ML IRRIGATION ONE (09:54)
--- NOTE | 2022-04-17 11:24 | P.OP ---
Date of Procedure: 04/17/22 Preoperative Diagnosis: Severe osteoarthritis right knee Postoperative Diagnosis: Severe osteoarthritis right knee Procedure(s) Performed: Right total knee arthroplasty Implants: [employer]hew Journey II CR Oxinium Bi-cruciate stabilized femoral component size 5, right [employer] Journey nonporous tibial baseplate size 4, right [employer] Journey II, constrained articular insert, size 13 mm, Size 3-4, right [employer] Journey Lelia II resurfacing patellar component, oval, 29 mm All components were cemented using Palacos R bone cement The articulation is Oxinium on polyethylene Anesthesia: spinal Surgeon: Huey Briceño Firepot Operator And Tender #1: Winsome Andrea Estimated Blood Loss (ml): 25 Pathology: other (Bone and cartilage) Condition: stable Disposition: PACU Indications for Procedure: After failure of conservative treatment we discussed the surgical and nonsurgical treatment options at length. Patient wishes to proceed with a total knee arthroplasty. Complications specific to this procedure were discussed at length, including but not limited to infection, bleeding, stiffness, and nerve injury. Covid-19 was also discussed at length with the patient, and they are aware of the current policies and procedures. The patient was given the option of delaying surgery, but they elect to proceed knowing these risks. Patient is aware of all these complications and informed consent was obtained Operative Findings: The operative findings are consistent with severe osteoarthritis of the right knee Description of Procedure: Patient was seen in the preoperative area and the consent was reviewed and the operative site was marked with a skin marker. The patient verified the procedure and the operative site. An adductor canal pain catheter and an iPACK block was placed by anesthesia in the preoperative area. The patient was then brought to the operating room and given preoperative antibiotics intravenously. A gram of transexamic acid was given intravenously. A spinal anesthetic was administered by the anesthesia department. A tourniquet was placed on the upper thigh and the lower extremity was prepped with chlorhexidine and draped in usual sterile fashion. A universal timeout was then performed which confirmed the patient's name, surgical site, ALLERGIES, and consent. The lower extremity was then exsanguinated and tourniquet was inflated to 250 mmHg. A standard anterior midline approach to the knee was performed. The skin and subcutaneous tissue were sharply dissected down to the patellar tendon. A medial parapatellar arthrotomy was then performed. The knee was then extended, the patellar was everted, and the knee was again flexed. The infra-patellar fat pad was removed in order to enhance exposure. The anterior horns of both menisci were excised, and a release was performed to the posterior medial aspect of the knee. On gross visual inspection, there was complete loss of articular cartilage in the medial and patellofemoral joint spaces. There was also significant cartilage damage in the lateral compartment. There were multiple periarticular osteophytes globally about the knee which were then removed with a Ronguer. The femoral canal was then opened with the 9.5 mm intramedullary drill. The 8 mm intramedullary jordana was then inserted into the femoral canal with the distal femoral cutting guide set for 5 of valgus. The distal femoral cutting block was then pinned in place. The intramedullary jordana was then removed, and the distal femur was then cut. The cutting block was then removed and the cut was checked for symmetry. The resected bone was then measured to confirm the appropriate distal femoral resection. Next, the sizing guide was then placed and set for 3 external rotation based off of the epicondylar axis and Whitesides line. Pins were then placed and the drill holes, and the femur was sized with the sizing stylus. The pins were then removed, and the sizing guide was then removed. The spikes of the femoral block was then placed into the predrilled holes, and malleted into place. Two 45 mm pins were then placed into the fixation holes on the cutting block. An caren wing was then used to ensure there would be no notching with the anterior cut. The anterior condyles were cut without notching. The anterior chord cut was then performed, followed by the posterior cut, posterior chamfer cut, and the anterior chamfer cut. The collateral ligaments were protected during the entire process. The cutting block was then removed. Any remaining bone and osteophytes were removed from the femur with a Ronguer. Attention was then directed to the tibia. The remaining ACL was removed with a Ronguer, and the tibia was then gently subluxed forward with a large bent knee retractor. Any remaining menisci were excised. The posterior lateral corner was cauterized in order to coagulate the lateral geniculate artery. The intra medullary tibial cutting guide was then placed, set for the appropriate rotation, slope, and depth of resection. The proximal tibia cutting guide was then pinned in place. Proximal tibia was then cut and sized. The femoral trial was placed. The box reamer was then used to remove the intracondylar femoral bone for the box. The box trial was then placed. The tibial trial was placed with the appropriate-sized insert. The knee was able to fully extend and flex to 130 and was stable throughout all range of motion. The knee was then extended and the patella was everted. Patella was then measured, and then using an osteotomy guide, the patella was cut at the appropriate level. The patella was then measured and drilled and the patella trial was then placed. The knee was then taken through range of motion with the patella trial and the patella tracked normally using the no thumbs technique. The knee was then extended patella trial was then removed and the patella was everted. Knee was then flexed and lug holes were drilled through the femoral trial and the femoral trial was then removed. The tibial was then re-exposed, and the tibial broach guide was then pinned in place after it was set for the appropriate rotation to allow for the most coverage without overhang. The tibia was then reamed and broached. The cut surfaces of bone were then irrigated with pulsatile lavage. The knee was also irrigated with Irrisept solution. The components were then opened, the cement was mixed, and the components were then cemented in place. The cement was allowed to harden with the knee in full extension. After the cemented hardened, the tourniquet was released and hemostasis was obtained. A second gram of transexamic acid was given intravenously. The knee was again irrigated. The knee was again taken through range of motion and found to be stable throughout all range of motion of 0-130, and the patella tracked normally. The fascia was then closed with 0 Vicryl followed by #2 strata fix suture. The subcutaneous tissue was closed with 3-0 Vicryl and 3-0 strata fix. Exofin glue was used for the skin and placed with the knee in flexion. After the glue had dried, and Optafoam silver impregnated dressing was applied. The patient was then transferred to recovery room in stable condition. The field technical assistant LOGAN Thakkar was required due the complexity surgery and the need for a skilled assistant golf course superintendent. She assisted in positioning, draping, retraction, and closure of the wound.
--- NOTE | 2022-04-17 11:52 | P.ANPRN ---
Procedure Note - Anesthesia - Nerve Block Performed Right Adductor Canal Infusion Time Out Performed: Yes (0932) Date of Procedure: 04/17/22 Procedure Start Time: :33 Procedure Stop Time: 09:38 Location of Patient: PreOp Indication: Acute Post-Operative Pain, Requested by Surgeon Specifically requested for management of pain by DrDeonte: Huey Briceño Sedation Type: Sedate with meaningful contact maintained Preparation: Sterile Prep, Sterile Dressing Position: Supine Catheter Depth at Skin (cm): 8 Catheter: Indwelling Needle Gauge: 18 Ultrasound used to visualize needle placement: No Ultrasound used to observe medication spread: No Injectate: 0.5% Ropivacaine (see comment for volume) (15cc + 10cc nacl pf) Blood Aspirated: No Pain Paresthesia on Injection Noted: No Resistance on Injection: Normal Image Stored and Saved: Yes Events: Uneventful and Well Tolerated
--- NOTE | 2022-04-17 11:53 | P.ANPRN ---
Procedure Note - Anesthesia - Nerve Block Performed Right iPack Single Time Out Performed: Yes (932) Date of Procedure: 04/17/22 Procedure Start Time: 09:39 Procedure Stop Time: 09:42 Location of Patient: PreOp Indication: Acute Post-Operative Pain, Requested by Surgeon Specifically requested for management of pain by DrDeonte: Huey Briceño Sedation Type: Sedate with meaningful contact maintained Preparation: Sterile Prep Position: Supine Catheter: None Needle Types: Pajunk Needle Gauge: 21 Ultrasound used to visualize needle placement: Yes Ultrasound used to observe medication spread: Yes Injectate: 0.5% Ropivacaine (see comment for volume) (15cc + 10cc nacl pf) Blood Aspirated: No Pain Paresthesia on Injection Noted: No Resistance on Injection: Normal Image Stored and Saved: Yes Events: Uneventful and Well Tolerated
[2022-04-17] MEDS ORDERED: ROPIVACAINE 0.2%-NS ON-Q PUMP 2 MG/ML EACH MISCELLANE ONE (12:20)
--- NOTE | 2022-04-17 12:23 | XR ---
EXAMINATION TYPE: XR knee limited RT DATE OF EXAM: 04/17/2022 COMPARISON: NONE TECHNIQUE: Two views submitted HISTORY: Post op FINDINGS: There is a prosthetic knee in near anatomic alignment. There is soft tissue edema and emphysema. IMPRESSION: 1. Postoperative change. Appears in near-anatomic alignment
[2022-04-17] MEDS ORDERED: ARTIFICIAL TEARS-HYPROMELLOSE DROPS 15 ML BTL RIGHT EYE PRN (12:32)
[2022-04-17] MEDS: SODIUM CHLORIDE 0.9% 1,000 ML IV SCH (14:09)
--- NOTE | 2022-04-17 14:19 | P.CONS ---
History of Present Illness - Reason for Consult Consult date: 04/17/22 Medical management Requesting physician: Huey Briceño - Chief Complaint Severe OSTEOARTHRITIS, status post right total knee arthroplasty - History of Present Illness This is a pleasant 71-year-old female returning from right total knee arthroplasty secondary to severe right knee osteoarthritis, failed conservative management and multiple other medical issues. Tolerated procedure well. Pain currently controlled. Right lower extremity Toby wrapped, Matt warm and pink. Denies chest pain, palpitations or shortness of breath. Maintaining O2 sats in the 90s on room air. Afebrile Review of Systems Constitutional: denied any fever. Cardio vascular: denied any chest pain, palpitations Gastrointestinal denied any nausea vomiting Pulmonary: Denied any shortness of breath cough Neurologic denied any new focal deficits ROS Statement: Those systems with pertinent positive or pertinent negative responses have been documented in the HPI. ROS Other: All systems not noted in ROS Statement are negative. Past Medical History Past Medical History: Cancer, Osteoarthritis (OA) Additional Past Medical History / Comment(s): RT BREAST CANCER 2010, Left LEG & rt knee pain FROM ACCIDENT IN 2009 USES CANE. History of Any Multi-Drug Resistant Organisms: None Reported Past Surgical History: Appendectomy, Breast Surgery, Orthopedic Surgery Additional Past Surgical History / Comment(s): RT LUMPECTOMY ON 07/17/18. RT BREAST BX benign lump from neck removed. left leg and ankle orif(hardware later removed), RT breast mastectomy 09/04/2018, jaye cataracts Past Anesthesia/Blood Transfusion Reactions: Postoperative Nausea & Vomiting (PONV) Additional Past Anesthesia/Blood Transfusion Reaction / Comm: HARD TIME WAKING UP Past Psychological History: No Psychological Hx Reported Additional Psychological History / Comment(s): . Smoking Status: Former smoker Past Alcohol Use History: None Reported Additional Past Alcohol Use History / Comment(s): quit as of 03/2022. started smoking age 21's, smoked on and off Past Drug Use History: None Reported - Past Family History Sister(s) Family Medical History: Cancer Additional Family Medical History / Comment(s): one sister ovarian, one sister colon and lung ca Father Family Medical History: Cancer Additional Family Medical History / Comment(s): bladder Brother(s) Family Medical History: Cancer Additional Family Medical History / Comment(s): Lung Medications and Allergies Home Medications Medication Instructions Recorded Confirmed Type Ascorbic Acid [Vitamin C] 500 mg PO DAILY 04/14/19 10/11/22 History Calcium/Magnesium/Zinc 1 tab PO DAILY 10/19/18 04/17/22 History [Iqdsmxr-Kkykbqunn-Klyd Tablet] Multivitamin,Therapeutic [Thera] 1 tab PO DAILY 10/19/18 04/17/22 History Letrozole 2.5 mg PO HS 05/03/20 04/17/22 History Acetaminophen [Tylenol Extra 500 mg PO TID 04/12/22 04/17/22 History Strength] Ibuprofen [Motrin Ib] 200 mg PO Q8H 04/12/22 04/17/22 History Aspirin 325 mg PO BID #60 tab 04/17/22 Rx HYDROcodone/APAP 7.5-325MG [[place] 1 - 2 tab PO Q6H PRN #32 tab 04/17/22 Rx 7.5-325] Sennosides [Senokot] 2 tab PO DAILY PRN #60 tablet 04/17/22 Rx Allergies Allergy/AdvReac Type Severity Reaction Status Date / Time Penicillins Allergy Severe Anaphylaxis Verified 04/17/22 09:20 Physical Exam Vitals: Vital Signs Temp Pulse Pulse Resp BP BP Pulse Ox 04/17/22 13:05 98.5 F 67 17 113/79 97 04/17/22 12:33 66 16 126/75 94 L 04/17/22 12:17 63 16 112/73 94 L 04/17/22 12:02 74 16 110/63 96 04/17/22 11:47 97.3 F L 74 14 127/58 97 04/17/22 09:50 72 20 140/71 94 L 04/17/22 09:25 98.5 F 04/17/22 09:21 99.3 F 80 20 131/69 95 Intake and Output 04/16/22 04/17/22 04/17/22 22:59 06:59 14:59 Intake Total 651 Output Total 25 Balance 626 Intake: IV 651 Output: Estimated Blood Loss 25 Other: Weight 107.5 kg PHYSICAL EXAM: VITAL SIGNS: As above GENERAL: Sitting up in bed, no acute distress HEENT: Conjunctivae normal. eyes normal. NECK: No JVD. No thyroid enlargement. No LNs CARDIOVASCULAR: S1, S2 regular.. No murmur RESPIRATION: Breath sounds diminished in the bases. No rhonchi or crackles. No bronchial breathing. ABDOMEN: Soft, nontender . No guarding. no masses palpable. No ascites, No hepatosplenomegaly.Bowel sounds heard. LEGS: Right lower extremity Toby wrapped, toes warm and pink. PSYCHIATRY: Alert and oriented X3, mood and affect normal. NERVOUS SYSTEM: Cranial N 2-12 grossly normal.No focal deficits. Strength and sensation grossly intact. Skin: Warm and dry, no rash Assessment and Plan Assessment: Severe osteoarthritis right knee, status post right total knee arthroplasty History of PONV Prior nicotine dependence History of right breast cancer 2010 Gait dysfunction, uses cane Plan: Continue on current medication regime ,monitoring and symptomatic treatment. Aggressive pulmonary toileting with incentive spirometer reinforced. PT/OT. Protonix added for DVT prophylaxis. Anticoagulation and pain management as per orthopedic surgery. Thank you for the consult. The impression and plan of care has been dictated as directed. : I performed a history and examination of this patient, discussed the same with the dictator. I agree with the dictator's note ,documented as a scribe. Any additional findings or plans will be noted.
[2022-04-17] MEDS: HYDROcodone/APAP 7.5-325MG 1 EACH TAB PO PRN ×2 (14:59→18:18)
[2022-04-17] MEDS: PANTOPRAZOLE 40 MG/10 ML VIAL IVP SCH (14:59)
[2022-04-17] MEDS: ASPIRIN 325 MG TAB PO SCH (20:23)
[2022-04-17] MEDS: SENNOSIDES-DOCUSATE SODIUM 1 EACH TAB PO SCH (20:23)
[2022-04-18] MEDS: SODIUM CHLORIDE 0.9% 1,000 ML IV SCH ×3 (00:13→22:47)
[2022-04-18] MEDS: HYDROcodone/APAP 7.5-325MG 1 EACH TAB PO PRN ×4 (00:13→15:47)
[2022-04-18] MEDS: LACTATED RINGERS 1,000 ML IV SCH (04:34)
[2022-04-18] MEDS: PANTOPRAZOLE 40 MG/10 ML VIAL IVP SCH (07:22)
[2022-04-18] MEDS: ASPIRIN 325 MG TAB PO SCH ×2 (07:22→20:27)
--- NOTE | 2022-04-18 08:18 | P.PN ---
Subjective Progress Note Date: 04/18/22 Principal diagnosis: Primary osteoarthritis right knee. Status post total right knee arthroplasty. This is a 71-year-old female who is postop day #1 status post total right knee arthroplasty. She is doing fairly well postoperatively. She has no new complaints or concerns today. Vital signs are stable. She is awaiting rehab placement. Objective - Vital Signs Vital signs: Vital Signs Temp 98.0 F 04/18/22 07:38 Pulse 75 04/18/22 07:38 Resp 18 04/18/22 07:38 BP 115/72 04/18/22 07:38 Pulse Ox 94 L 04/18/22 07:38 FiO2 Intake & Output 04/17/22 04/18/22 04/18/22 18:59 06:59 18:59 Intake Total 651 Output Total 25 Balance 626 Weight 107.5 kg Intake: IV 651 Output: Estimated Blood Loss 25 Other: Voiding Method Bedpan # Voids 1 3 - Exam This is a pleasant 71-year-old female in no acute distress. She is alert and oriented 3. Exam of the right lower extremity reveals that her dressing is clean, dry and intact. She has full foot and ankle motion without difficulty or pain. Neurovascular status to the lower extremities is intact. Assessment and Plan (1) Primary osteoarthritis of right knee Current Visit: Yes Status: Acute Code(s): M17.11 - UNILATERAL PRIMARY OSTEOARTHRITIS, RIGHT KNEE SNOMED Code(s): 818120068481663 (2) Status post total right knee replacement Current Visit: Yes Status: Acute Code(s): Z96.651 - PRESENCE OF RIGHT ARTIFICIAL KNEE JOINT SNOMED Code(s): 6866366004667 Plan: The clinical and x-ray findings are discussed the patient. We're planning discharge to inpatient rehab when cleared medically and placement is arranged. Continue physical therapy.
--- NOTE | 2022-04-18 08:18 | P.PN ---
Subjective Progress Note Date: 04/18/22 Principal diagnosis: Primary osteoarthritis right knee. Status post total right knee arthroplasty. This is a 71-year-old female who is postop day #1 status post total right knee arthroplasty. She is doing fairly well postoperatively. She has no new complaints or concerns today. Vital signs are stable. She is awaiting rehab placement. Objective - Vital Signs Vital signs: Vital Signs Temp 98.0 F 04/18/22 07:38 Pulse 75 04/18/22 07:38 Resp 18 04/18/22 07:38 BP 115/72 04/18/22 07:38 Pulse Ox 94 L 04/18/22 07:38 FiO2 Intake & Output 04/17/22 04/18/22 04/18/22 18:59 06:59 18:59 Intake Total 651 Output Total 25 Balance 626 Weight 107.5 kg Intake: IV 651 Output: Estimated Blood Loss 25 Other: Voiding Method Bedpan # Voids 1 3 - Exam This is a pleasant 71-year-old female in no acute distress. She is alert and oriented 3. Exam of the right lower extremity reveals that her dressing is clean, dry and intact. She has full foot and ankle motion without difficulty or pain. Neurovascular status to the lower extremities is intact. Assessment and Plan (1) Primary osteoarthritis of right knee Current Visit: Yes Status: Acute Code(s): M17.11 - UNILATERAL PRIMARY OSTEOARTHRITIS, RIGHT KNEE SNOMED Code(s): 930586641029776 (2) Status post total right knee replacement Current Visit: Yes Status: Acute Code(s): Z96.651 - PRESENCE OF RIGHT ARTIFICIAL KNEE JOINT SNOMED Code(s): 5560814298115 Plan: The clinical and x-ray findings are discussed the patient. We're planning discharge to inpatient rehab when cleared medically and placement is arranged. Continue physical therapy.
--- NOTE | 2022-04-18 08:43 | P.PN ---
Progress Note - Text Progress Note Date: 04/18/22 (0600) Anesthesiology Postop day 1 status post total knee arthroplasty with adductor canal catheter. Patient doing well. VAS 5 out of 10. Gross strength intact in lower extremity. Afebrile. Denies alterations in sensorium. Catheter site intact. Heart regular rate Lungs nonlabored Abdomen nondistended Assessment: Postop day 1 status post total knee arthroplasty with adductor canal catheter Plan: All questions answered. Maintain catheter 2 more days with patient removal at home. Instructions were given at discharge.
[2022-04-18 10:41] LABS: HCT 39.8 % (37.2-46.3); HGB 12.9 g/dL (12.0-15.0); MCH 33.2 pg (27.0-32.0); MCHC 32.4 g/dL (32.0-37.0); MCV 102.3 fL (80.0-97.0); NRBC Per 100 WBC 0 /100 WBCS (0.0-0.0); Platelet Count 196 X 10*3/uL (140-440); RBC 3.89 X 10*6/uL (4.10-5.20); RDW 13.5 % (11.5-14.5); WBC 10.52 X 10*3/uL (4.50-10.00)
[2022-04-18 13:17] LABS: Basophils # (A) 0.01 X 10*3/uL (0.00-0.10); Basophils % (A) 0.1 %; Eosinophils # (A) 0.04 X 10*3/uL (0.04-0.35); Eosinophils % (A) 0.4 %; Immature Grans, Automated 0.3 %; Lymphocytes # (A) 1.95 X 10*3/uL (0.90-5.00); Lymphocytes % (A) 18.5 %; Monocytes # (A) 1.51 X 10*3/uL (0.20-1.00); Monocytes % (A) 14.4 %; Neutrophils # (A) 6.98 X 10*3/uL (1.80-7.70); Neutrophils % (A) 66.3 %
--- NOTE | 2022-04-18 15:44 | P.PN ---
Subjective Progress Note Date: 04/18/22 History of Present Illness - Reason for Consult Consult date: 04/17/22 Medical management Requesting physician: Huey Briceño - Chief Complaint Severe OSTEOARTHRITIS, status post right total knee arthroplasty - History of Present Illness This is a pleasant 71-year-old female returning from right total knee arthroplasty secondary to severe right knee osteoarthritis, failed conservative management and multiple other medical issues. Tolerated procedure well. Pain currently controlled. Right lower extremity Toby wrapped, Matt warm and pink. Denies chest pain, palpitations or shortness of breath. Maintaining O2 sats in the 90s on room air. Afebrile. 04/18/2022 postop day #1, doing well. Participated with PT, Tolerated exertion well . Pain currently controlled. Awaiting subacute rehab placement. Urinating without difficulty and passing flatus. Denies chest pain, palpitations or shortness of breath. Afebrile. Objective - Vital Signs Vital signs: Vital Signs Temp 98.0 F 04/18/22 14:00 Pulse 74 04/18/22 14:00 Resp 18 04/18/22 14:00 BP 113/72 04/18/22 14:00 Pulse Ox 96 04/18/22 14:00 FiO2 Intake & Output 04/17/22 04/18/22 04/18/22 18:59 06:59 18:59 Intake Total 651 Output Total 25 Balance 626 Weight 107.5 kg Intake: IV 651 Output: Estimated Blood Loss 25 Other: Voiding Method Bedpan # Voids 1 3 2 # Bowel Movements 1 - Exam PHYSICAL EXAM: VITAL SIGNS: As above GENERAL: Sitting up in bed, no acute distress HEENT: Conjunctivae normal. eyes normal. NECK: No JVD. No thyroid enlargement. No LNs. CARDIOVASCULAR: S1, S2 regular.No murmur. RESPIRATION: Breath sounds diminished in the bases. No rhonchi or crackles. No bronchial breathing. ABDOMEN: Soft, nontender . No guarding. no masses palpable. Positive Bowel sounds. LEGS: Right lower extremity Toby wrapped, toes warm and pink. PSYCHIATRY: Alert and oriented X3, mood and affect normal. NERVOUS SYSTEM: Cranial N 2-12 grossly normal.No focal deficits. Strength and sensation grossly intact. Skin: Warm and dry, no rash - Labs CBC & Chem 7: 04/18/22 07:24 Labs: Abnormal Lab Results - Last 24 Hours (Table) 10/12/22 Range/Units 07:24 WBC 10.52 H (4.50-10.00) X 10*3/uL RBC 3.89 L (4.10-5.20) X 10*6/uL MCV 102.3 H (80.0-97.0) fL MCH 33.2 H (27.0-32.0) pg Monocytes # 1.51 H (0.20-1.00) X 10*3/uL Assessment and Plan Assessment: Severe osteoarthritis right knee, status post right total knee arthroplasty History of PONV Prior nicotine dependence History of right breast cancer 2010 Gait dysfunction, uses cane Plan: Continue on current medication regime ,monitoring and symptomatic treatment. Authorization for [facility] subacute rehab pending. Maintain aggressive pulmonary toileting with incentive spirometer reinforced. PT/OT. Anticoagulation and pain management as per orthopedic surgery. The impression and plan of care has been dictated as directed. : I performed a history and examination of this patient, discussed the same with the dictator. I agree with the dictator's note ,documented as a scribe. Any additional findings or plans will be noted.
[2022-04-18] MEDS: HYDROmorphone 0.5 MG/0.5 ML SYRINGE IVP PRN ×2 (16:50→22:38)
[2022-04-18] MEDS: LETROZOLE 2.5 MG TAB PO SCH (20:27)
[2022-04-18] MEDS: SENNOSIDES-DOCUSATE SODIUM 1 EACH TAB PO SCH (20:27)
[2022-04-19] MEDS: HYDROcodone/APAP 7.5-325MG 1 EACH TAB PO PRN ×4 (03:11→21:39)
[2022-04-19] MEDS: LACTATED RINGERS 1,000 ML IV SCH (07:10)
[2022-04-19] MEDS: ASPIRIN 325 MG TAB PO SCH ×2 (08:04→21:33)
[2022-04-19] MEDS: PANTOPRAZOLE 40 MG TABLET PO SCH (08:05)
--- NOTE | 2022-04-19 13:11 | P.PN ---
Subjective Progress Note Date: 04/19/22 Patient presents for post op follow up after right total knee arthroplasty on 04/17/[address] Huey Briceño. Patient states that she is doing well and working with physical therapy. Patient denies any new complaints today. Objective - Vital Signs Vital signs: Vital Signs Temp 97.9 F 04/19/22 08:00 Pulse 107 H 04/19/22 08:00 Resp 17 04/19/22 08:00 BP 143/65 04/19/22 08:00 Pulse Ox 95 04/19/22 08:00 FiO2 Intake & Output 04/18/22 04/19/22 04/19/22 18:59 06:59 18:59 Other: Voiding Method Toilet # Voids 1 1 # Bowel Movements 1 - Exam On exam patient is lying comfortably in bed in no acute distress. Patient is alert and oriented x3. Dressing is intact with minimal bloody drainage present. There is ecchymosis present. Calf is soft and nontender to palpation. Sensation intact. Patient has full range of motion of the foot and ankle. Neurovascular status and circulatory status are intact. - Labs CBC & Chem 7: 04/18/22 07:24 Labs: Abnormal Lab Results - Last 24 Hours (Table) 04/18/22 Range/Units 07:24 Monocytes # 1.51 H (0.20-1.00) X 10*3/uL Assessment and Plan (1) Primary osteoarthritis of right knee Current Visit: Yes Status: Acute Code(s): M17.11 - UNILATERAL PRIMARY OSTEOARTHRITIS, RIGHT KNEE SNOMED Code(s): 412424617151286 (2) Status post total right knee replacement Current Visit: Yes Status: Acute Code(s): Z96.651 - PRESENCE OF RIGHT ARTIFICIAL KNEE JOINT SNOMED Code(s): 8503702849561 Plan: 1. Leave dressing in place for 7 days. 2. Weight bearing as tolerated. 3. Continue routine postoperative care and pain control. 4. Continue physical therapy. 5. Patient is awaiting rehab placement.
--- NOTE | 2022-04-19 13:11 | P.PN ---
Subjective Progress Note Date: 04/19/22 Patient presents for post op follow up after right total knee arthroplasty on 04/17/[address] Huey Briceño. Patient states that she is doing well and working with physical therapy. Patient denies any new complaints today. Objective - Vital Signs Vital signs: Vital Signs Temp 97.9 F 04/19/22 08:00 Pulse 107 H 04/19/22 08:00 Resp 17 04/19/22 08:00 BP 143/65 04/19/22 08:00 Pulse Ox 95 04/19/22 08:00 FiO2 Intake & Output 04/18/22 04/19/22 04/19/22 18:59 06:59 18:59 Other: Voiding Method Toilet # Voids 1 1 # Bowel Movements 1 - Exam On exam patient is lying comfortably in bed in no acute distress. Patient is alert and oriented x3. Dressing is intact with minimal bloody drainage present. There is ecchymosis present. Calf is soft and nontender to palpation. Sensation intact. Patient has full range of motion of the foot and ankle. Neurovascular status and circulatory status are intact. - Labs CBC & Chem 7: 04/18/22 07:24 Labs: Abnormal Lab Results - Last 24 Hours (Table) 04/18/22 Range/Units 07:24 Monocytes # 1.51 H (0.20-1.00) X 10*3/uL Assessment and Plan (1) Primary osteoarthritis of right knee Current Visit: Yes Status: Acute Code(s): M17.11 - UNILATERAL PRIMARY OSTEOARTHRITIS, RIGHT KNEE SNOMED Code(s): 073673720081912 (2) Status post total right knee replacement Current Visit: Yes Status: Acute Code(s): Z96.651 - PRESENCE OF RIGHT ARTIFICIAL KNEE JOINT SNOMED Code(s): 6708179073480 Plan: 1. Leave dressing in place for 7 days. 2. Weight bearing as tolerated. 3. Continue routine postoperative care and pain control. 4. Continue physical therapy. 5. Patient is awaiting rehab placement.
[2022-04-19] MEDS: SODIUM CHLORIDE 0.9% 1,000 ML IV SCH (17:06)
[2022-04-19] MEDS: LETROZOLE 2.5 MG TAB PO SCH (21:33)
[2022-04-19] MEDS: SENNOSIDES-DOCUSATE SODIUM 1 EACH TAB PO SCH (21:33)
[2022-04-20] MEDS: LACTATED RINGERS 1,000 ML IV SCH (06:32)
[2022-04-20] MEDS: HYDROcodone/APAP 7.5-325MG 1 EACH TAB PO PRN ×3 (06:42→19:34)
[2022-04-20] MEDS: PANTOPRAZOLE 40 MG TABLET PO SCH (07:23)
[2022-04-20] MEDS: ASPIRIN 325 MG TAB PO SCH ×2 (07:25→20:32)
--- NOTE | 2022-04-20 10:17 | P.PN ---
Subjective Progress Note Date: 04/20/22 Patient presents for post op follow up after right total knee arthroplasty on 04/17/[address] Huey Briceño. Patient is seen and evaluated at bedside today. Patient states that she is doing well with physical therapy, but still needs assistance. Patient denies any new complaints today. Objective - Vital Signs Vital signs: Vital Signs Temp 98.6 F 04/20/22 08:00 Pulse 89 04/20/22 08:00 Resp 17 04/20/22 08:00 BP 112/49 04/20/22 08:00 Pulse Ox 93 L 04/20/22 08:00 FiO2 Intake & Output 04/19/22 04/20/22 04/20/22 18:59 06:59 18:59 Other: Voiding Method Toilet # Voids 6 3 # Bowel Movements 1 - Exam On exam patient is lying comfortably in bed in no acute distress. Patient is alert and oriented x3. Dressing is intact with minimal bloody drainage present. There is ecchymosis present. Calf is soft and nontender to palpation. Sensation intact. Patient has full range of motion of the foot and ankle. Neurovascular status and circulatory status are intact. - Labs CBC & Chem 7: 04/18/22 07:24 Assessment and Plan (1) Primary osteoarthritis of right knee Current Visit: Yes Status: Acute Code(s): M17.11 - UNILATERAL PRIMARY OSTEOARTHRITIS, RIGHT KNEE SNOMED Code(s): 219729314075953 (2) Status post total right knee replacement Current Visit: Yes Status: Acute Code(s): Z96.651 - PRESENCE OF RIGHT ARTIFICIAL KNEE JOINT SNOMED Code(s): 7831531724298 Plan: 1. Leave dressing in place for 7 days. 2. Weight bearing as tolerated with walker. 3. Continue routine postoperative care and pain control. 4. Continue physical therapy. 5. Anticoagulation with aspirin. 6. Patient is awaiting rehab placement.
--- NOTE | 2022-04-20 10:17 | P.PN ---
Subjective Progress Note Date: 04/20/22 Patient presents for post op follow up after right total knee arthroplasty on 04/17/[address] Huey Bricñeo. Patient is seen and evaluated at bedside today. Patient states that she is doing well with physical therapy, but still needs assistance. Patient denies any new complaints today. Objective - Vital Signs Vital signs: Vital Signs Temp 98.6 F 04/20/22 08:00 Pulse 89 04/20/22 08:00 Resp 17 04/20/22 08:00 BP 112/49 04/20/22 08:00 Pulse Ox 93 L 04/20/22 08:00 FiO2 Intake & Output 04/19/22 04/20/22 04/20/22 18:59 06:59 18:59 Other: Voiding Method Toilet # Voids 6 3 # Bowel Movements 1 - Exam On exam patient is lying comfortably in bed in no acute distress. Patient is alert and oriented x3. Dressing is intact with minimal bloody drainage present. There is ecchymosis present. Calf is soft and nontender to palpation. Sensation intact. Patient has full range of motion of the foot and ankle. Neurovascular status and circulatory status are intact. - Labs CBC & Chem 7: 04/18/22 07:24 Assessment and Plan (1) Primary osteoarthritis of right knee Current Visit: Yes Status: Acute Code(s): M17.11 - UNILATERAL PRIMARY OSTEOARTHRITIS, RIGHT KNEE SNOMED Code(s): 908928968673990 (2) Status post total right knee replacement Current Visit: Yes Status: Acute Code(s): Z96.651 - PRESENCE OF RIGHT ARTIFICIAL KNEE JOINT SNOMED Code(s): 6044029186483 Plan: 1. Leave dressing in place for 7 days. 2. Weight bearing as tolerated with walker. 3. Continue routine postoperative care and pain control. 4. Continue physical therapy. 5. Anticoagulation with aspirin. 6. Patient is awaiting rehab placement.
--- NOTE | 2022-04-20 10:28 | P.PN ---
Subjective Progress Note Date: 04/20/22 History of Present Illness - Reason for Consult Consult date: 04/17/22 Medical management Requesting physician: Huey Briceño - Chief Complaint Severe OSTEOARTHRITIS, status post right total knee arthroplasty - History of Present Illness This is a pleasant 71-year-old female returning from right total knee arthroplasty secondary to severe right knee osteoarthritis, failed conservative management and multiple other medical issues. Tolerated procedure well. Pain currently controlled. Right lower extremity Toby wrapped, Matt warm and pink. Denies chest pain, palpitations or shortness of breath. Maintaining O2 sats in the 90s on room air. Afebrile. 04/18/2022 postop day #1, doing well. Participated with PT, Tolerated exertion well . Pain currently controlled. Awaiting subacute rehab placement. Urinating without difficulty and passing flatus. Denies chest pain, palpitations or shortness of breath. Afebrile. 04/19/2022 continues to do well, participating, ambulating with PT. Tolerating exertion well, denies lightheadedness, dizziness or focal deficits. Pain controlled. Positive flatus and bowel movement. Vital signs stable, maintaining O2 sats in the 90s on room air. Denies chest pain, palpitations or increased shortness of breath. Objective - Vital Signs Vital signs: Vital Signs Temp 98.4 F 04/19/22 14:00 Pulse 80 04/19/22 14:00 Resp 16 04/19/22 14:00 BP 115/76 04/19/22 14:00 Pulse Ox 94 L 04/19/22 14:00 FiO2 Intake & Output 04/18/22 04/19/22 04/19/22 18:59 06:59 18:59 Other: Voiding Method Toilet # Voids 1 1 # Bowel Movements 1 - Exam PHYSICAL EXAM: VITAL SIGNS: As above GENERAL: Alert and oriented 3, Sitting up in bed, no acute distress HEENT: Conjunctivae normal. eyes normal. NECK: Supple, No JVD. CARDIOVASCULAR: S1, S2 regular.No murmur. RESPIRATION: Breath sounds diminished in the bases. No rhonchi or crackles. No bronchial breathing. ABDOMEN: Soft, nontender . No guarding. no masses palpable. Positive Bowel sounds. LEGS: Right lower extremity dressing clean, dry and intact, nontender, no clubbing, no cyanosis, positive DP pulse NERVOUS SYSTEM: Cranial N 2-12 grossly normal.No focal deficits. Strength and sensation grossly intact. Skin: Warm and dry, no rash - Labs CBC & Chem 7: 04/18/22 07:24 Assessment and Plan Assessment: Severe osteoarthritis right knee, status post right total knee arthroplasty History of PONV Prior nicotine dependence History of right breast cancer 2010 Gait dysfunction, uses cane Plan: Continue on current medication regime ,monitoring and symptomatic treatment. Discharge planning in progress ;authorization for [facility] subacute rehab pending. Continue with aggressive pulmonary toileting with incentive s pirometer reinforced. PT/OT. Anticoagulation and pain management as per orthopedic surgery. The impression and plan of care has been dictated as directed. : I performed a history and examination of this patient, discussed the same with the dictator. I agree with the dictator's note ,documented as a scribe. Any additional findings or plans will be noted.
[2022-04-20 10:36] LABS: Basophils # (A) 0.02 X 10*3/uL (0.00-0.10); Basophils % (A) 0.2 %; HCT 33.7 % (37.2-46.3); HGB 11.1 g/dL (12.0-15.0); Immature Grans, Automated 0.3 %; Lymphocytes # (A) 1.63 X 10*3/uL (0.90-5.00); Lymphocytes % (A) 16.5 %; MCH 33.2 pg (27.0-32.0); MCHC 32.9 g/dL (32.0-37.0); MCV 100.9 fL (80.0-97.0); Mean Platelet Volume 9.8 fL (9.5-12.2); Monocytes # (A) 1.08 X 10*3/uL (0.20-1.00); Monocytes % (A) 10.9 %; NRBC Per 100 WBC 0 /100 WBCS (0.0-0.0); Neutrophils # (A) 6.81 X 10*3/uL (1.80-7.70); Neutrophils % (A) 69.1 %; Platelet Count 196 X 10*3/uL (140-440); RBC 3.34 X 10*6/uL (4.10-5.20); RDW 13.1 % (11.5-14.5); WBC 9.87 X 10*3/uL (4.50-10.00)
--- NOTE | 2022-04-20 13:33 | P.PN ---
Subjective Progress Note Date: 04/20/22 History of Present Illness - Reason for Consult Consult date: 04/17/22 Medical management Requesting physician: Huey Briceño - Chief Complaint Severe OSTEOARTHRITIS, status post right total knee arthroplasty - History of Present Illness This is a pleasant 71-year-old female returning from right total knee arthroplasty secondary to severe right knee osteoarthritis, failed conservative management and multiple other medical issues. Tolerated procedure well. Pain currently controlled. Right lower extremity Toby wrapped, Matt warm and pink. Denies chest pain, palpitations or shortness of breath. Maintaining O2 sats in the 90s on room air. Afebrile. 04/18/2022 postop day #1, doing well. Participated with PT, Tolerated exertion well . Pain currently controlled. Awaiting subacute rehab placement. Urinating without difficulty and passing flatus. Denies chest pain, palpitations or shortness of breath. Afebrile. 04/19/2022 continues to do well, participating, ambulating with PT. Tolerating exertion well, denies lightheadedness, dizziness or focal deficits. Pain controlled. Positive flatus and bowel movement. Vital signs stable, maintaining O2 sats in the 90s on room air. Denies chest pain, palpitations or increased shortness of breath. 04/20/2022 No Overnight events, vital signs stable. Participating with physical therapy, reporting decreased endurance. Denies lightheadedness dizziness or focal deficits. Denies chest pain, palpitations or shortness of breath. Maintaining O2 sats in the 90s on room air. Afebrile, normal WBC. Hemoglobin 11.1, platelets 196. Objective - Vital Signs Vital signs: Vital Signs Temp 98.6 F 04/20/22 08:00 Pulse 89 04/20/22 08:00 Resp 17 04/20/22 08:00 BP 112/49 04/20/22 08:00 Pulse Ox 93 L 04/20/22 08:00 FiO2 Intake & Output 04/19/22 04/20/22 04/20/22 18:59 06:59 18:59 Other: Voiding Method Toilet # Voids 6 3 # Bowel Movements 1 - Exam PHYSICAL EXAM: VITAL SIGNS: As above GENERAL: Alert and oriented 3, Sitting up in chair no acute distress. HEENT: Conjunctivae normal. eyes normal. NECK: Supple, No JVD. CARDIOVASCULAR: S1, S2 regular.No murmur. RESPIRATION: Nonlabored Breath sounds diminished in the bases. No rhonchi or crackles. ABDOMEN: Soft, nondistended, nontender . No guarding. Positive Bowel sounds. LEGS: Right lower extremity with minimal ecchymosis, dressing clean, dry and intact, nontender, no clubbing, no cyanosis, positive DP pulse NERVOUS SYSTEM: Cranial N 2-12 grossly normal.No focal deficits. Strength and sensation grossly intact. Skin: Warm and dry, no rash - Labs CBC & Chem 7: 04/20/22 06:36 Labs: Abnormal Lab Results - Last 24 Hours (Table) 04/20/22 Range/Units 06:36 RBC 3.34 L (4.10-5.20) X 10*6/uL Hgb 11.1 L (12.0-15.0) g/dL Hct 33.7 L (37.2-46.3) % MCV 100.9 H (80.0-97.0) fL MCH 33.2 H (27.0-32.0) pg Monocytes # 1.08 H (0.20-1.00) X 10*3/uL Assessment and Plan Assessment: Severe osteoarthritis right knee, status post right total knee arthroplasty History of PONV Prior nicotine dependence History of right breast cancer 2010 Gait dysfunction, uses cane Plan: Continue on current medication regime ,monitoring and symptomatic treatment. Discharge planning in progress ;authorization for [facility] subacute rehab pending. Maintain aggressive pulmonary toileting with incentive spirometer reinforced. PT/OT. Anticoagulation and pain management as per orthopedic surgery. Medically cleared for discharge. Dr. Thompson will follow with patient at subacute rehab. The impression and plan of care has been dictated as directed. : I performed a history and examination of this patient, discussed the same with the dictator. I agree with the dictator's note ,documented as a scribe. Any additional findings or plans will be noted.
[2022-04-20] MEDS: SODIUM CHLORIDE 0.9% 1,000 ML IV SCH (13:55)
[2022-04-20] MEDS: LETROZOLE 2.5 MG TAB PO SCH (20:32)
[2022-04-20] MEDS: SENNOSIDES-DOCUSATE SODIUM 1 EACH TAB PO SCH (21:19)
[2022-04-21] MEDS: HYDROcodone/APAP 7.5-325MG 1 EACH TAB PO PRN ×4 (02:27→22:10)
[2022-04-21] MEDS: SODIUM CHLORIDE 0.9% 1,000 ML IV SCH (05:20)
[2022-04-21] MEDS: LACTATED RINGERS 1,000 ML IV SCH (07:19)
[2022-04-21] MEDS: PANTOPRAZOLE 40 MG TABLET PO SCH (09:09)
[2022-04-21] MEDS: ASPIRIN 325 MG TAB PO SCH ×2 (09:09→20:39)
--- NOTE | 2022-04-21 09:27 | P.PN ---
Subjective Progress Note Date: 04/21/22 Principal diagnosis: Primary osteoarthritis right knee. Status post total right knee arthroplasty. This is a 71-year-old female who is postop day #4 status post total right knee arthroplasty. She is doing fairly well postoperatively. She has no new complaints or concerns today. Vital signs are stable. She is awaiting rehab placement. Objective - Vital Signs Vital signs: Vital Signs Temp 97.6 F 04/21/22 02:00 Pulse 76 04/21/22 02:00 Resp 16 04/21/22 02:00 BP 123/79 04/21/22 02:00 Pulse Ox 95 04/21/22 02:00 FiO2 Intake & Output 04/20/22 04/21/22 04/21/22 18:59 06:59 18:59 Other: # Voids 5 2 # Bowel Movements 1 - Exam This is a pleasant 71-year-old female in no acute distress. She is alert and oriented 3. Exam of the right lower extremity reveals that her dressing is clean, dry and intact. She has full foot and ankle motion without difficulty or pain. Neurovascular status to the lower extremities is intact. - Labs CBC & Chem 7: 04/20/22 06:36 Labs: Abnormal Lab Results - Last 24 Hours (Table) 04/20/22 Range/Units 06:36 RBC 3.34 L (4.10-5.20) X 10*6/uL Hgb 11.1 L (12.0-15.0) g/dL Hct 33.7 L (37.2-46.3) % MCV 100.9 H (80.0-97.0) fL MCH 33.2 H (27.0-32.0) pg Monocytes # 1.08 H (0.20-1.00) X 10*3/uL Assessment and Plan (1) Primary osteoarthritis of right knee Current Visit: Yes Status: Acute Code(s): M17.11 - UNILATERAL PRIMARY OSTEOARTHRITIS, RIGHT KNEE SNOMED Code(s): 375364084447429 (2) Status post total right knee replacement Current Visit: Yes Status: Acute Code(s): Z96.651 - PRESENCE OF RIGHT ARTIFICIAL KNEE JOINT SNOMED Code(s): 0807297828306 Plan: The clinical and x-ray findings are discussed the patient. We're planning discharge to inpatient rehab when cleared medically and placement is arranged. Continue physical therapy.
--- NOTE | 2022-04-21 09:27 | P.PN ---
Subjective Progress Note Date: 04/21/22 Principal diagnosis: Primary osteoarthritis right knee. Status post total right knee arthroplasty. This is a 71-year-old female who is postop day #4 status post total right knee arthroplasty. She is doing fairly well postoperatively. She has no new complaints or concerns today. Vital signs are stable. She is awaiting rehab placement. Objective - Vital Signs Vital signs: Vital Signs Temp 97.6 F 04/21/22 02:00 Pulse 76 04/21/22 02:00 Resp 16 04/21/22 02:00 BP 123/79 04/21/22 02:00 Pulse Ox 95 04/21/22 02:00 FiO2 Intake & Output 04/20/22 04/21/22 04/21/22 18:59 06:59 18:59 Other: # Voids 5 2 # Bowel Movements 1 - Exam This is a pleasant 71-year-old female in no acute distress. She is alert and oriented 3. Exam of the right lower extremity reveals that her dressing is clean, dry and intact. She has full foot and ankle motion without difficulty or pain. Neurovascular status to the lower extremities is intact. - Labs CBC & Chem 7: 04/20/22 06:36 Labs: Abnormal Lab Results - Last 24 Hours (Table) 04/20/22 Range/Units 06:36 RBC 3.34 L (4.10-5.20) X 10*6/uL Hgb 11.1 L (12.0-15.0) g/dL Hct 33.7 L (37.2-46.3) % MCV 100.9 H (80.0-97.0) fL MCH 33.2 H (27.0-32.0) pg Monocytes # 1.08 H (0.20-1.00) X 10*3/uL Assessment and Plan (1) Primary osteoarthritis of right knee Current Visit: Yes Status: Acute Code(s): M17.11 - UNILATERAL PRIMARY OSTEOARTHRITIS, RIGHT KNEE SNOMED Code(s): 240657904599607 (2) Status post total right knee replacement Current Visit: Yes Status: Acute Code(s): Z96.651 - PRESENCE OF RIGHT ARTIFICIAL KNEE JOINT SNOMED Code(s): 5116504334242 Plan: The clinical and x-ray findings are discussed the patient. We're planning discharge to inpatient rehab when cleared medically and placement is arranged. Continue physical therapy.
--- NOTE | 2022-04-21 12:17 | P.PN ---
Subjective This is a pleasant 71-year-old female returning from right total knee arthroplasty secondary to severe right knee osteoarthritis, failed conservative management and multiple other medical issues. Tolerated procedure well. Pain currently controlled. Right lower extremity Toby wrapped, Matt warm and pink. Denies chest pain, palpitations or shortness of breath. Maintaining O2 sats in the 90s on room air. Afebrile. 04/18/2022 postop day #1, doing well. Participated with PT, Tolerated exertion well . Pain currently controlled. Awaiting subacute rehab placement. Urinating without difficulty and passing flatus. Denies chest pain, palpitations or shortness of breath. Afebrile. 04/19/2022 continues to do well, participating, ambulating with PT. Tolerating exertion well, denies lightheadedness, dizziness or focal deficits. Pain controlled. Positive flatus and bowel movement. Vital signs stable, maintaining O2 sats in the 90s on room air. Denies chest pain, palpitations or increased shortness of breath. 04/20/2022 No Overnight events, vital signs stable. Participating with physical therapy, reporting decreased endurance. Denies lightheadedness dizziness or focal deficits. Denies chest pain, palpitations or shortness of breath. Maintaining O2 sats in the 90s on room air. Afebrile, normal WBC. Hemoglobin 11.1, platelets 196. 04/21/2022: Patient remained stable. She is waiting insurance authorization for ECF. He is been waiting on this several days. She denies any chest pains, pressures, shortness breath, nausea or vomiting. Objective - Vital Signs Vital signs: Vital Signs Temp 98.2 F 04/21/22 08:00 Pulse 85 04/21/22 08:00 Resp 15 04/21/22 08:00 BP 106/66 04/21/22 08:00 Pulse Ox 94 L 04/21/22 08:00 FiO2 Intake & Output 04/20/22 04/21/22 04/21/22 18:59 06:59 18:59 Other: # Voids 5 2 # Bowel Movements 1 - Exam GENERAL: Alert and oriented 3, Sitting up in chair no acute distress. NECK: Supple, No JVD. CARDIOVASCULAR: S1, S2 regular.No murmur. RESPIRATION: Nonlabored Breath sounds diminished in the bases. No rhonchi or crackles. ABDOMEN: Soft, nondistended, nontender . No guarding. Positive Bowel sounds. LEGS: Right lower extremity dressing in place NERVOUS SYSTEM: Cranial N 2-12 grossly normal.No focal deficits. Strength and sensation grossly intact. Skin: Warm and dry, no rash - Labs CBC & Chem 7: 04/20/22 06:36 Assessment and Plan (1) Status post total right knee replacement Current Visit: Yes Status: Acute Code(s): Z96.651 - PRESENCE OF RIGHT ARTIFICIAL KNEE JOINT SNOMED Code(s): 1699415267431 (2) Primary osteoarthritis of right knee Current Visit: Yes Status: Acute Code(s): M17.11 - UNILATERAL PRIMARY OSTEOARTHRITIS, RIGHT KNEE SNOMED Code(s): 081911585787507 (3) H/O malignant neoplasm of breast Current Visit: Yes Status: Acute Code(s): Z85.3 - PERSONAL HISTORY OF MALIGNANT NEOPLASM OF BREAST SNOMED Code(s): 167806115 (4) Anemia, macrocytic Current Visit: Yes Status: Acute Code(s): D53.9 - NUTRITIONAL ANEMIA, UNSPECIFIED SNOMED Code(s): 54797426 Plan: He remains on pantoprazole for GI prophylaxis sent off for constipation prophy laxis, and aspirin for anticoagulation. She is on letrozole for her history of breast cancer. I will add a B complex multivitamin along with multivitamin with iron at this time. She is medically cleared for discharge
--- NOTE | 2022-04-21 12:17 | P.PN ---
Subjective This is a pleasant 71-year-old female returning from right total knee arthroplasty secondary to severe right knee osteoarthritis, failed conservative management and multiple other medical issues. Tolerated procedure well. Pain currently controlled. Right lower extremity Toby wrapped, Matt warm and pink. Denies chest pain, palpitations or shortness of breath. Maintaining O2 sats in the 90s on room air. Afebrile. 04/18/2022 postop day #1, doing well. Participated with PT, Tolerated exertion well . Pain currently controlled. Awaiting subacute rehab placement. Urinating without difficulty and passing flatus. Denies chest pain, palpitations or shortness of breath. Afebrile. 04/19/2022 continues to do well, participating, ambulating with PT. Tolerating exertion well, denies lightheadedness, dizziness or focal deficits. Pain controlled. Positive flatus and bowel movement. Vital signs stable, maintaining O2 sats in the 90s on room air. Denies chest pain, palpitations or increased shortness of breath. 04/20/2022 No Overnight events, vital signs stable. Participating with physical therapy, reporting decreased endurance. Denies lightheadedness dizziness or focal deficits. Denies chest pain, palpitations or shortness of breath. Maintaining O2 sats in the 90s on room air. Afebrile, normal WBC. Hemoglobin 11.1, platelets 196. 04/21/2022: Patient remained stable. She is waiting insurance authorization for ECF. He is been waiting on this several days. She denies any chest pains, pressures, shortness breath, nausea or vomiting. Objective - Vital Signs Vital signs: Vital Signs Temp 98.2 F 04/21/22 08:00 Pulse 85 04/21/22 08:00 Resp 15 04/21/22 08:00 BP 106/66 04/21/22 08:00 Pulse Ox 94 L 04/21/22 08:00 FiO2 Intake & Output 04/20/22 04/21/22 04/21/22 18:59 06:59 18:59 Other: # Voids 5 2 # Bowel Movements 1 - Exam GENERAL: Alert and oriented 3, Sitting up in chair no acute distress. NECK: Supple, No JVD. CARDIOVASCULAR: S1, S2 regular.No murmur. RESPIRATION: Nonlabored Breath sounds diminished in the bases. No rhonchi or crackles. ABDOMEN: Soft, nondistended, nontender . No guarding. Positive Bowel sounds. LEGS: Right lower extremity dressing in place NERVOUS SYSTEM: Cranial N 2-12 grossly normal.No focal deficits. Strength and sensation grossly intact. Skin: Warm and dry, no rash - Labs CBC & Chem 7: 04/20/22 06:36 Assessment and Plan (1) Status post total right knee replacement Current Visit: Yes Status: Acute Code(s): Z96.651 - PRESENCE OF RIGHT ARTIFICIAL KNEE JOINT SNOMED Code(s): 1877758370189 (2) Primary osteoarthritis of right knee Current Visit: Yes Status: Acute Code(s): M17.11 - UNILATERAL PRIMARY OSTEOARTHRITIS, RIGHT KNEE SNOMED Code(s): 905724703261829 (3) H/O malignant neoplasm of breast Current Visit: Yes Status: Acute Code(s): Z85.3 - PERSONAL HISTORY OF MALIGNANT NEOPLASM OF BREAST SNOMED Code(s): 602651523 (4) Anemia, macrocytic Current Visit: Yes Status: Acute Code(s): D53.9 - NUTRITIONAL ANEMIA, UNSPECIFIED SNOMED Code(s): 24161852 Plan: He remains on pantoprazole for GI prophylaxis sent off for constipation prophy laxis, and aspirin for anticoagulation. She is on letrozole for her history of breast cancer. I will add a B complex multivitamin along with multivitamin with iron at this time. She is medically cleared for discharge
[2022-04-21] MEDS: FOLIC ACID-VIT B COMPLEX-VIT C 1 CAP PO SCH (16:14)
[2022-04-21] MEDS: MULTIVITAMINS, THERA 1 EACH TAB PO SCH (16:14)
[2022-04-21] MEDS: SENNOSIDES-DOCUSATE SODIUM 1 EACH TAB PO SCH (20:39)
[2022-04-21] MEDS: LETROZOLE 2.5 MG TAB PO SCH (20:39)
[2022-04-22] MEDS: HYDROcodone/APAP 7.5-325MG 1 EACH TAB PO PRN ×3 (04:48→19:23)
[2022-04-22] MEDS: ASPIRIN 325 MG TAB PO SCH ×2 (08:04→19:23)
[2022-04-22] MEDS: PANTOPRAZOLE 40 MG TABLET PO SCH (08:04)
[2022-04-22] MEDS: FOLIC ACID-VIT B COMPLEX-VIT C 1 CAP PO SCH (08:05)
[2022-04-22] MEDS: MULTIVITAMINS, THERA 1 EACH TAB PO SCH (08:05)
--- NOTE | 2022-04-22 10:44 | P.PN ---
Subjective Progress Note Date: 04/22/22 Principal diagnosis: Primary osteoarthritis right knee. Status post total right knee arthroplasty. This is a 71-year-old female who is postop day #5 status post total right knee arthroplasty. She is doing fairly well postoperatively. She has no new complaints or concerns today. Vital signs are stable. She is awaiting rehab placement. Objective - Vital Signs Vital signs: Vital Signs Temp 98.3 F 04/22/22 07:15 Pulse 79 04/22/22 07:15 Resp 15 04/22/22 07:15 BP 130/80 04/22/22 07:15 Pulse Ox 93 L 04/22/22 07:15 FiO2 Intake & Output 04/21/22 04/22/22 04/22/22 18:59 06:59 18:59 Intake Total 820 Output Total 300 Balance -300 820 Intake: Oral 820 Output: Urine 300 Other: # Voids 2 - Exam This is a pleasant 71-year-old female in no acute distress. She is alert and oriented 3. Exam of the right lower extremity reveals that her dressing is clean, dry and intact. She has full foot and ankle motion without difficulty or pain. Neurovascular status to the lower extremities is intact. - Labs CBC & Chem 7: 04/20/22 06:36 Assessment and Plan (1) Primary osteoarthritis of right knee Current Visit: Yes Status: Acute Code(s): M17.11 - UNILATERAL PRIMARY OSTEOARTHRITIS, RIGHT KNEE SNOMED Code(s): 441152030240132 (2) Status post total right knee replacement Current Visit: Yes Status: Acute Code(s): Z96.651 - PRESENCE OF RIGHT ARTIFICIAL KNEE JOINT SNOMED Code(s): 6126687374625 Plan: The clinical and x-ray findings are discussed the patient. We're planning discharge to inpatient rehab when cleared medically and placement is arranged. Continue physical therapy.
--- NOTE | 2022-04-22 10:44 | P.PN ---
Subjective Progress Note Date: 04/22/22 Principal diagnosis: Primary osteoarthritis right knee. Status post total right knee arthroplasty. This is a 71-year-old female who is postop day #5 status post total right knee arthroplasty. She is doing fairly well postoperatively. She has no new complaints or concerns today. Vital signs are stable. She is awaiting rehab placement. Objective - Vital Signs Vital signs: Vital Signs Temp 98.3 F 04/22/22 07:15 Pulse 79 04/22/22 07:15 Resp 15 04/22/22 07:15 BP 130/80 04/22/22 07:15 Pulse Ox 93 L 04/22/22 07:15 FiO2 Intake & Output 04/21/22 04/22/22 04/22/22 18:59 06:59 18:59 Intake Total 820 Output Total 300 Balance -300 820 Intake: Oral 820 Output: Urine 300 Other: # Voids 2 - Exam This is a pleasant 71-year-old female in no acute distress. She is alert and oriented 3. Exam of the right lower extremity reveals that her dressing is clean, dry and intact. She has full foot and ankle motion without difficulty or pain. Neurovascular status to the lower extremities is intact. - Labs CBC & Chem 7: 04/20/22 06:36 Assessment and Plan (1) Primary osteoarthritis of right knee Current Visit: Yes Status: Acute Code(s): M17.11 - UNILATERAL PRIMARY OSTEOARTHRITIS, RIGHT KNEE SNOMED Code(s): 544590664416519 (2) Status post total right knee replacement Current Visit: Yes Status: Acute Code(s): Z96.651 - PRESENCE OF RIGHT ARTIFICIAL KNEE JOINT SNOMED Code(s): 0877285354505 Plan: The clinical and x-ray findings are discussed the patient. We're planning discharge to inpatient rehab when cleared medically and placement is arranged. Continue physical therapy.
--- NOTE | 2022-04-22 11:57 | US ---
EXAMINATION TYPE: US venous doppler duplex LE RT DATE OF EXAM: 04/22/2022 11:23 AM COMPARISON: NONE CLINICAL HISTORY: erythema/edema. SIDE PERFORMED: TECHNIQUE: The lower extremity deep venous system is examined utilizing real time linear array sonog antolin with graded compression, doppler sonography and color-flow sonography. VESSELS IMAGED: Common Femoral Vein Deep Femoral Vein Greater Saphenous Vein * Femoral Vein Popliteal Vein Small Saphenous Vein * Proximal Calf Veins (* superficial vessels) Morbidly obese patient with extensive leg swelling. Technically difficult, somewhat limited study. Grayscale, color doppler, spectral doppler imaging performed of the deep veins of the lower extremiti es. There is normal flow, compressibility, vascular waveforms within the limitations of the exam. . Right Leg: Appears negative for DVT as seen, unable to visualized mid and distal femoral vein for co mpression views, unable to well see popliteal vein for compression views. IMPRESSION: No evident deep venous thrombosis within the limitations of the exam.
[2022-04-22] MEDS: SENNOSIDES-DOCUSATE SODIUM 1 EACH TAB PO SCH (19:23)
[2022-04-22] MEDS: LETROZOLE 2.5 MG TAB PO SCH (19:24)
[2022-04-23] MEDS: HYDROcodone/APAP 7.5-325MG 1 EACH TAB PO PRN ×2 (01:02→07:33)
[2022-04-23] MEDS: MULTIVITAMINS, THERA 1 EACH TAB PO SCH (07:29)
[2022-04-23] MEDS: FOLIC ACID-VIT B COMPLEX-VIT C 1 CAP PO SCH (07:29)
[2022-04-23] MEDS: PANTOPRAZOLE 40 MG TABLET PO SCH (07:29)
[2022-04-23] MEDS: ASPIRIN 325 MG TAB PO SCH (07:29)
[2022-04-23 07:44] VITALS: BP 122/75; PULSE 94; RESP 19; TEMP 98.1
--- NOTE | 2022-04-23 10:55 | P.DS ---
Providers Date of admission: 04/19/22 07:55 Expected date of discharge: 04/23/22 Attending physician: Huey Briceño Consults: 04/17/22 08:44 Consult Physician Routine Consulting Provider: Carlyle Thompson Consult Reason/Comments: medical management Do you want consulting provider notified?: Yes Primary care physician: Carlyle Thompson - Discharge Diagnosis(es) (1) Primary osteoarthritis of right knee Current Visit: Yes Status: Acute (2) Status post total right knee replacement Current Visit: Yes Status: Acute Hospital Course: This is a 71-year-old female with known history of degenerative arthritis of the right knee. The patient presented for evaluation as an outpatient. After discussion and consideration patient elects to proceed with total knee arthroplasty. The patient is seen preoperatively by Dr. Briceño and medically cleared for surgery by their primary care physician. Patient is admitted to [facility] on 04/17/2022 for total knee arthroplasty. The procedure is performed without complication or sequelae. The patient is doing well postoperatively. Labs and vital signs are stable on day of discharge. Doppler ultrasound of the right lower extremity was negative. On day of discharge patient's knee incision is healing well. There is minimal erythema. There is no drainage noted at this time. There is minimal soft tissue swelling to the knee. Patient has full foot and ankle motion without difficulty or pain. Calf is soft and nontender to palpation. Neurovascular status to the right lower extremity is intact. Patient initially wanted discharge to ECF which lengthened her hospital stay, but she was denied authorization to ECF. Patient is discharged home in good condition. Please see med rec for accurate list of home medications. Plan - Discharge Summary Discharge Rx Participant: Yes New Discharge Prescriptions: New Sennosides [Senokot] 2 tab PO DAILY PRN #60 tablet PRN Reason: Constipation Aspirin 325 mg PO BID #60 tab HYDROcodone/APAP 7.5-325MG [Geraldine 7.5-325] 1 - 2 tab PO Q6H PRN #32 tab PRN Reason: Pain Discontinued Ibuprofen [Motrin Ib] 200 mg PO Q8H No Action Ascorbic Acid [Vitamin C] 500 mg PO DAILY Multivitamin,Therapeutic [Thera] 1 tab PO DAILY Calcium/Magnesium/Zinc [Fevyrsn-Jgmildgxk-Ewmw Tablet] 1 tab PO DAILY Letrozole 2.5 mg PO HS Acetaminophen [Tylenol Extra Strength] 500 mg PO TID Discharge Medication List Ascorbic Acid [Vitamin C] 500 mg PO DAILY 10/19/18 [History] Calcium/Magnesium/Zinc [Fgdptla-Izixbxdsd-Uatz Tablet] 1 tab PO DAILY 10/19/18 [History] Multivitamin,Therapeutic [Thera] 1 tab PO DAILY 10/19/18 [History] Letrozole 2.5 mg PO HS 05/03/20 [History] Acetaminophen [Tylenol Extra Strength] 500 mg PO TID 04/12/22 [History] Aspirin 325 mg PO BID #60 tab 04/17/22 [Rx] Sennosides [Senokot] 2 tab PO DAILY PRN #60 tablet 04/17/22 [Rx] HYDROcodone/APAP 7.5-325MG [Geraldine 7.5-325] 1 - 2 tab PO Q6H PRN #32 tab 04/20/22 [Rx] Follow up Appointment(s)/Referral(s): Carlyle Thompson MD [Primary Care Provider] - 3 Days Huey Briceño DO [Doctor of Osteopathic Medicine] - 2 Weeks Activity/Diet/Wound Care/Special Instructions: Weightbearing as tolerated with a walker. CPM 5-6h daily as tolerated. Leave dressing intact. Dressing may be removed by home care nurse or by patient in 7 days. Then change dressing twice daily until follow up. May shower with initial dressing intact and after removal. If dressing become saturated, please remove. Recommend use of compression stockings daily until follow up to help prevent swelling and blood clots. May remove at night before sleeping. Please take aspirin 325mg twice daily for 30 days to prevent blood clots. Please follow up with [facility] and call with any questions or concerns, . Discharge Disposition: HOME WITH HOME HEALTH SERVICES
--- NOTE | 2022-04-23 10:55 | P.DS ---
Providers Date of admission: 04/19/22 07:55 Expected date of discharge: 04/23/22 Attending physician: Huey Briceño Consults: 04/17/22 08:44 Consult Physician Routine Consulting Provider: Carlyle Thompson Consult Reason/Comments: medical management Do you want consulting provider notified?: Yes Primary care physician: Carlyle Thmopson - Discharge Diagnosis(es) (1) Primary osteoarthritis of right knee Current Visit: Yes Status: Acute (2) Status post total right knee replacement Current Visit: Yes Status: Acute Hospital Course: This is a 71-year-old female with known history of degenerative arthritis of the right knee. The patient presented for evaluation as an outpatient. After discussion and consideration patient elects to proceed with total knee arthroplasty. The patient is seen preoperatively by Dr. Briceño and medically cleared for surgery by their primary care physician. Patient is admitted to [facility] on 04/17/2022 for total knee arthroplasty. The procedure is performed without complication or sequelae. The patient is doing well postoperatively. Labs and vital signs are stable on day of discharge. Doppler ultrasound of the right lower extremity was negative. On day of discharge patient's knee incision is healing well. There is minimal erythema. There is no drainage noted at this time. There is minimal soft tissue swelling to the knee. Patient has full foot and ankle motion without difficulty or pain. Calf is soft and nontender to palpation. Neurovascular status to the right lower extremity is intact. Patient initially wanted discharge to [facility] which lengthened her hospital stay, but she was denied authorization to [facility]CF. Patient is discharged home in good condition. Please see med rec for accurate list of home medications. Plan - Discharge Summary Discharge Rx Participant: Yes New Discharge Prescriptions: New Sennosides [Senokot] 2 tab PO DAILY PRN #60 tablet PRN Reason: Constipation Aspirin 325 mg PO BID #60 tab HYDROcodone/APAP 7.5-325MG [Burke 7.5-325] 1 - 2 tab PO Q6H PRN #32 tab PRN Reason: Pain Discontinued Ibuprofen [Motrin Ib] 200 mg PO Q8H No Action Ascorbic Acid [Vitamin C] 500 mg PO DAILY Multivitamin,Therapeutic [Thera] 1 tab PO DAILY Calcium/Magnesium/Zinc [Ipzpoel-Vwkjnqtjy-Ncpi Tablet] 1 tab PO DAILY Letrozole 2.5 mg PO HS Acetaminophen [Tylenol Extra Strength] 500 mg PO TID Discharge Medication List Ascorbic Acid [Vitamin C] 500 mg PO DAILY 10/19/18 [History] Calcium/Magnesium/Zinc [Cbmosxv-Goonxnniq-Zhia Tablet] 1 tab PO DAILY 10/19/18 [History] Multivitamin,Therapeutic [Thera] 1 tab PO DAILY 10/19/18 [History] Letrozole 2.5 mg PO HS 05/03/20 [History] Acetaminophen [Tylenol Extra Strength] 500 mg PO TID 04/12/22 [History] Aspirin 325 mg PO BID #60 tab 04/17/22 [Rx] Sennosides [Senokot] 2 tab PO DAILY PRN #60 tablet 04/17/22 [Rx] HYDROcodone/APAP 7.5-325MG [Burke 7.5-325] 1 - 2 tab PO Q6H PRN #32 tab 04/20/22 [Rx] Follow up Appointment(s)/Referral(s): Carlyle Thompson MD [Primary Care Provider] - 3 Days Huey Briceño DO [Doctor of Osteopathic Medicine] - 2 Weeks Activity/Diet/Wound Care/Special Instructions: Weightbearing as tolerated with a walker. CPM 5-6h daily as tolerated. Leave dressing intact. Dressing may be removed by home care nurse or by patient in 7 days. Then change dressing twice daily until follow up. May shower with initial dressing intact and after removal. If dressing become saturated, please remove. Recommend use of compression stockings daily until follow up to help prevent swelling and blood clots. May remove at night before sleeping. Please take aspirin 325mg twice daily for 30 days to prevent blood clots. Please follow up with [facility] and call with any questions or concerns, . Discharge Disposition: HOME WITH HOME HEALTH SERVICES
== END 2022-04-23 12:48 | disposition home health service (06) ==
LOC: OR 08:54 → 4SSUR 12:06 → OR 04-19 07:55
PROVIDERS: ADMIT Orthopaedic Surgery; ATTEND Orthopaedic Surgery
DX: M17.11 Unilateral primary osteoarthritis, right knee (principal); R26.9 Unspecified abnormalities of gait and mobility; Z87.891 Personal history of nicotine dependence; Z90.49 Acquired absence of other specified parts of digestive tract; Z90.11 Acquired absence of right breast and nipple; Z98.42 Cataract extraction status, left eye; Z98.41 Cataract extraction status, right eye; Z85.3 Personal history of malignant neoplasm of breast; Z97.3 Presence of spectacles and contact lenses; Z98.890 Other specified postprocedural states; Z83.3 Family history of diabetes mellitus; Z82.49 Family history of ischemic heart disease and other diseases of the circulatory system; Z80.41 Family history of malignant neoplasm of ovary; Z80.1 Family history of malignant neoplasm of trachea, bronchus and lung; Z80.0 Family history of malignant neoplasm of digestive organs; Z80.52 Family history of malignant neoplasm of bladder; Z79.1 Long term (current) use of non-steroidal anti-inflammatories (NSAID); Z79.899 Other long term (current) drug therapy; Z79.82 Long term (current) use of aspirin; Z88.0 Allergy status to penicillin
CPT/HCPCS: 97116 ×2; 97530 ×2; 97162; 97535 ×2; 97166; 64999; 64448; 76942; 88305; 85025 ×2; 88311; 73560; 93971; 27447; G0378 ×5; C1713; C1776; J2250; J1100; J0690 ×3; J2405; J3010; J2795 ×2; J2370; J2704; C9113 ×2; J1170

== ENCOUNTER → 2022-10-26 | Outpatient (CLI) | payer MEDICARE ==
--- NOTE | 2022-10-26 13:37 | MM ---
Reason for Exam: Follow-up at short interval from prior study. Last screening mammogram was performed 12 month(s) ago. Patient History: Menarche at age 15. First Full-Term at age 21. Postmenopausal. Patient has history of breast feeding. Breast cancer, right, age 67. Previous chest radiation therapy. 1971, Benign Excisional Biopsy on the right side. 07/17/2018, Lumpectomy on the Right side. 08/2018, Mastectomy on the Right side. 07/17/2018, Malignant Core Biopsy on the right side. 06/23/2018, Malignant Core Biopsy on the right side. 2018, Radiation Therapy on the right side. Maternal aunt had breast cancer. Maternal aunt had breast cancer. Sister had ovarian cancer at or over age 50. Prior Study Comparison: 06/17/2018 Bilateral Diagnostic Mammogram, [facility]. 06/23/2018 Right Diagnostic Mammogram, [facility]. 07/17/2018 Right Diagnostic Mammogram, [facility]. 06/17/2019 Left Diagnostic Mammogram, [facility]. 06/20/2020 Left Diagnostic Mammogram, [facility]. 10/24/2021 Bilateral Screening Mammogram, [facility]. Tissue Density: Left: The breast tissue is heterogeneously dense. This may lower the sensitivity of mammography. Findings: Analyzed By CAD. Abdomen appears stable. Focal asymmetry is within the medial left breast appears unchanged. No suspicious groups of microcalcifications, spiculated or lobular masses, architectural distortion or other secondary signs of malignancy are mammographically apparent. Overall Assessment: Benign, BI-RAD 2 Management: Screening Mammogram of the left breast in 6 months. A negative mammogram report should not preclude additional follow up of suspicious palpable abnormalities. Patient should continue monthly self breast exam. A clinical breast exam by your physician is recommended on an annual basis and results should be correlated with mammographic findings. Electronically signed and approved by: Channing Treadwell D.O. Radiologis
== END | disposition home or self-care (01) ==
LOC: RADMAMWWP 12:53
PROVIDERS: ATTEND Internal Medicine Hematology & Oncology
DX: Z85.3 Personal history of malignant neoplasm of breast (principal); Z80.3 Family history of malignant neoplasm of breast; Z78.0 Asymptomatic menopausal state; Z92.3 Personal history of irradiation
CPT/HCPCS: 77065; G0279; 77061

== ENCOUNTER → 2022-11-16 | Outpatient (CLI) | payer MEDICARE ==
[2022-11-16 15:54] LABS: INR 0.9 (<1.2); Partial Thromboplastin Time 23.5 sec (22.0-30.0)
[2022-11-16 20:45] LABS: HCT 49.2 % (37.2-46.3); HGB 15.8 g/dL (12.0-15.0); MCH 32.4 pg (27.0-32.0); MCHC 32.1 g/dL (32.0-37.0); NRBC Per 100 WBC 0 /100 WBCS (0.0-0.0); Platelet Count 247 X 10*3/uL (140-440); RBC 4.87 X 10*6/uL (4.10-5.20); RDW 13.2 % (11.5-14.5); WBC 7.27 X 10*3/uL (4.50-10.00)
[2022-11-16 21:08] LABS: African American GFR (CKD) 101.7 (60.0-200.0); Albumin 4.5 g/dL (3.8-4.9); Albumin/Globulin Ratio 1.67 (1.60-3.17); Anion Gap 13.2 mmol/L (10.00-18.00); BUN/Creat Ratio 18.14 Ratio (12.00-20.00); Blood Urea Nitrogen 12.7 mg/dL (9.0-27.0); Calcium 9.9 mg/dL (8.7-10.3); Carbon Dioxide 23.8 mmol/L (20.0-27.5); Globulin 2.7 g/dL (1.6-3.3); Non-African American GFR(CKD) 87.8 (60.0-200.0); Potassium 4.2 mmol/L (3.5-5.5); Total Bilirubin 0.4 mg/dL (0.30-1.20); Total Protein 7.2 g/dL (6.2-8.2)
[2022-11-16 22:20] LABS: Appearance,Urine Clear (Clear); Bilirubin,Urine Negative (Negative); Blood,Urine Negative (Negative); Color,Urine Yellow (Yellow); Ketones,Urine Negative (Negative); Nitrite,Urine Negative (Negative); Specific Gravity,Urine 1.014 (1.001-1.030); Urobilinogen,Urine 0.2 (0.2,1.0)
== END | disposition home or self-care (01) ==
LOC: LABWHC1 13:26
PROVIDERS: ATTEND Orthopaedic Surgery
DX: Z01.818 Encounter for other preprocedural examination (principal); M17.12 Unilateral primary osteoarthritis, left knee; I49.3 Ventricular premature depolarization; R94.31 Abnormal electrocardiogram [ECG] [EKG]
CPT/HCPCS: 36415; 80053; 81003; 85027; 85610; 85730; 87070; 93005

== ENCOUNTER 2022-12-04 11:16 | Day surgery (SDC) | payer MEDICARE, OTHER ==
[~2022-12-04 11:16] MED LIST changes: +DEXAMETHASONE SOD PHOSPHATE 4 MG/ML 1 ML VIAL IV ONE; -HYDROmorphone 0.5 MG/0.5 ML SYRINGE IVP PRN; +LIDOCAINE 1% (10MG/ML) FOR IV START INTRADERMA PRN; -MAGNESIUM HYDROXIDE 2,400 MG/10 ML CUP PO PRN; +MIDAZOLAM 2 MG/2 ML VIAL IV PRN; -NA PHOS,M-B/NA PHOS,DI-BA 133 ML ENEMA RECTAL PRN; -NALOXONE 0.4 MG/ML 1 ML VIAL IV PRN; +ONDANSETRON 4 MG/2 ML VIAL IVP ONE; -ONDANSETRON 4 MG/2 ML VIAL IVP PRN; -bisacodyL 10 MG SUPP RECTAL PRN
[2022-12-04] MEDS: LACTATED RINGERS 1,000 ML IV SCH (12:30)
[2022-12-04] MEDS ORDERED: MIDAZOLAM 2 MG/2 ML VIAL IVP ONE (12:59)
[2022-12-04] MEDS ORDERED: PROPOFOL 10 MG/ML 20 ML VIAL IV ONE (13:32)
[2022-12-04] MEDS ORDERED: PHENYLEPHRINE-0.9% NACL SYG 1,000 MCG/10 ML SYRINGE ONE (13:32)
[2022-12-04] MEDS ORDERED: fentaNYL (PF) 50 MCG/ML 2 ML AMP ONE (13:32)
[2022-12-04] MEDS ORDERED: MIDAZOLAM 2 MG/2 ML VIAL ONE (13:32)
[2022-12-04] MEDS ORDERED: TRANEXAMIC ACID IN NACL,ISO-OS 1,000 MG/100 ML BAG ONE (13:32)
[2022-12-04] MEDS ORDERED: DEXAMETHASONE SOD PHOSPHATE 4 MG/ML 1 ML VIAL ONE (13:32)
[2022-12-04] MEDS ORDERED: KETAMINE 10 MG/ML 20 ML VIAL ONE (13:32)
[2022-12-04] MEDS ORDERED: ROPIVACAINE 5 MG/ML 30 ML VIAL ONE (13:32)
--- NOTE | 2022-12-04 13:38 | P.ANPRN ---
Procedure Note - Anesthesia - Nerve Block Performed Left Adductor Canal Infusion Time Out Performed: Yes Date of Procedure: 12/04/22 Procedure Start Time: 12:58 Procedure Stop Time: 13:11 Location of Patient: PreOp Indication: Acute Post-Operative Pain, Requested by Surgeon Sedation Type: Sedate with meaningful contact maintained Preparation: Sterile Prep, Sterile Dressing Position: Supine Catheter: Indwelling Needle Types: Pajunk Needle Gauge: 21 Ultrasound used to visualize needle placement: Yes Ultrasound used to observe medication spread: Yes Blood Aspirated: No Pain Paresthesia on Injection Noted: No Resistance on Injection: Normal Image Stored and Saved: Yes Events: Uneventful and Well Tolerated (Ropivacaine 0.5% 20 mL plus dexamethasone 4 mg)
--- NOTE | 2022-12-04 13:50 | P.ANPRN ---
Procedure Note - Anesthesia - Nerve Block Performed Left iPack Single Time Out Performed: Yes Date of Procedure: 12/04/22 Procedure Start Time: 13:12 Procedure Stop Time: 13:15 Location of Patient: PreOp Indication: Acute Post-Operative Pain, Requested by Surgeon Sedation Type: Sedate with meaningful contact maintained Preparation: Sterile Dressing Position: Supine Needle Types: Pajunk Needle Gauge: 21 Ultrasound used to visualize needle placement: Yes Ultrasound used to observe medication spread: Yes Blood Aspirated: No Pain Paresthesia on Injection Noted: No Resistance on Injection: Normal Image Stored and Saved: Yes Events: Uneventful and Well Tolerated (Ropivacaine 0.5% 20 mL dexamethasone 4 mg)
[2022-12-04] MEDS ORDERED: ceFAZolin 1,000 MG in SODIUM CHLORIDE 0.9% 1,000 ML IRRIGATION ONE (14:06)
--- NOTE | 2022-12-04 15:05 | P.OP ---
Date of Procedure: 12/04/22 Preoperative Diagnosis: Severe osteoarthritis left knee Postoperative Diagnosis: Severe osteoarthritis left knee Procedure(s) Performed: Left total knee arthroplasty Implants: Thompson [employer] Nephew Journey II CR Oxinium Bi-cruciate stabalized femoral component size 4, left [employer]hew Journey nonporous tibial baseplate size 3, left [employer] Journey II, constrained articular insert, size 9 mm, Size 3-4, left [employer]hew Journey Lelia II resurfacing patellar component, oval, 29 mm All components were cemented using Palacos R bone cement The articulation is Oxinium on polyethylene Anesthesia: spinal Surgeon: Huey Briceño Environmental Services Specialist #1: Winsome Andrea Estimated Blood Loss (ml): 50 Pathology: none sent Condition: stable Disposition: PACU Indications for Procedure: The patient's knee is end-stage, and conservative management has failed. The operation of knee replacement has been discussed at length in the office, as well as potential risks and complications. These are inclusive of, but not limited to: Infection, bleeding, scarring, discomfort, stiffness, blood vessel and nerve damage, need for further surgery, failure to relieve symptoms, persistence, recurrence, or worsening of problems, loosening, dislocation, wear, blood clot, pulmonary embolism, , gait dysfunction, stiffness, and other risks as discussed in the office. Patient elects to proceed and the consent form has been signed. Operative Findings: The operative findings are consistent with severe osteoarthritis of the left knee Description of Procedure: The patient was seen in the preoperative area, the consent was reviewed and the operative site was marked with a skin marker. The patient verified the procedure and the operative site. An adductor canal pain catheter and an iPACK block were placed by anesthesia in the preoperative area. The patient was then brought to the operating room and positioned on the operating room table in the supine position. Preoperative antibiotics and a gram of tranexamic acid were given intravenously. A spinal anesthetic was administered by the anesthesia department. Care was taken to make sure that all pressure points were adequately padded. A tourniquet was placed on the upper thigh and the lower extremity was prepped with ChloraPrep and draped in usual sterile fashion. A universal time-out was then performed which confirmed the patient's name, surgical site, ALLERGIES, and consent. The lower extremity was then exsanguinated and tourniquet was inflated to 250 mmHg. A standard anterior midline approach to the knee was performed. The skin and subcutaneous tissue were sharply dissected down to the patellar tendon. A medial parapatellar arthrotomy was then performed. The knee was then extended, the patellar was everted, and the knee was flexed. The infra-patellar fat pad was removed in order to enhance exposure. The anterior horns of both menisci were excised, and a release was performed to the posterior medial aspect of the knee. On gross visual inspection, there was complete loss of articular cartilage in the medial and patellofemoral joint spaces. There was also significant cartilage damage in the lateral compartment. There were multiple periarticular osteophytes globally about the knee which were then removed with a Ronguer. The femoral canal was then opened with the 9.5 mm intramedullary drill. The 8 mm intramedullary jordana was then inserted into the femoral canal with the distal femoral cutting guide set for 5 of valgus. The distal femoral cutting block was then pinned in place. The intramedullary jordana was then removed, and the distal femur was then cut. The cutting block was then removed and the cut was checked for symmetry. The resected bone was then measured to confirm the appropriate distal femoral resection. Next, the sizing guide was then placed and set for 3 external rotation based off of the epicondylar axis and Gunnison's line. Pins were then placed and the drill holes, and the femur was sized with the sizing stylus. The pins were then removed, and the sizing guide was then removed. The spikes of the appropriate size femoral block was then placed into the predrilled holes, and malleted into place. Two 45 mm pins were then placed into the fixation holes on the cutting block. An caren wing was then used to ensure there would be no notching with the anterior cut. The anterior condyles were cut without notching. The anterior chord cut was then performed, followed by the posterior cut, posterior chamfer cut, and the anterior chamfer cut. The collateral ligaments were protected during the entire process. The cutting block was then removed. Any remaining bone and osteophytes were removed from the femur with a Ronguer. Attention was then directed to the tibia. The remaining ACL was removed with a Ronguer, and the tibia was then gently subluxed forward with a large bent knee retractor. Any remaining menisci were excised. The posterior lateral corner was cauterized in order to coagulate the lateral geniculate artery. The extra medullary tibial cutting guide was then placed, set for the appropriate rotation, slope, and depth of resection. The proximal tibia cutting guide was then pinned in place. Proximal tibia was then cut and sized. A curved osteotome was then used to remove any posterior osteophytes from the distal femur. The femoral trial was placed. The box drill guide was then placed on the femoral trial. The Reamer was then used to ream out the intercondylar femoral bone and a Moise was then used to remove any remaining bone. The box trial was then placed. The tibial trial was placed with the appropriate-sized insert. The knee was able to fully extend and flex to 130 and was stable throughout all range of motion. The knee was then extended and the patella was everted. Patella was then measured, and then using an osteotomy guide, the patella was cut at the appropriate level. The patellar component was sized. The patellar drill guide was placed and the patella was drilled. The patella trial was then placed. The knee was then taken through range of motion with the patella trial and the patella tracked normally using the no thumbs technique. The patella trial was then removed. The knee was then flexed and lug holes were drilled through the femoral trial and the femoral trial was then removed. The tibial was then re-exposed, and the tibial broach guide was then pinned in place after it was set for the appropriate rotation to allow for the most coverage without overhang. The tibia was then reamed and broached. The femoral canal was plugged with autologous bone. The cut surfaces of bone were then irrigated with pulsatile lavage. The knee was also irrigated with Irrisept solution. The components were then opened, the cement was mixed. Cement was placed on the backside of the femoral, tibial, and patellar components. Cement was then applied to the tibial surface and pressurized into the surface using finger pressurization technique. The tibial component was then applied and excess cement was removed after it was impacted securely noted to be flush with the cut surface. In similar fashion, the cement was applied to the cut femoral surface, pressurized and using finger pressurization the component was impacted in place. Excess cement was removed. The polyethylene spacer was then implanted and locked into position. Patellar component was then applied in a similar technique and the patellar clamp was used to hold patella in place while the cement hardened. The knee was held in full extension while the cement hardened. Once the cement had fully hardened, the knee was reinspected. Any other cement extrusion was removed the final range of motion testing showed range of motion from 0-130 with excellent stability, both medial and laterally and appropriate alignment of the leg. Patella tracked normally. After the cemented hardened, the tourniquet was released and hemostasis was obtained. A second gram of transexamic acid was given intravenously. The knee was again irrigated. The knee was again taken through range of motion and found to be stable throughout all range of motion of 0-130, and the patella tracked normally. The fascia was then closed with 0 Vicryl followed by #2 strata fix suture. The subcutaneous tissue was closed with 3-0 Vicryl and 3-0 strata fix. Exofin glue was used for the skin and placed with the knee in flexion. After the glue had dried, and Optafoam silver impregnated dressing was applied. A lightly compressive dressing was applied using web roll and Toby wrap. Patient was then transferred to the stretcher and taken to recovery room in stable condition. Sponge and needle counts were correct. The employee relations assistant LOGAN Thakkar was required due the complexity surgery and the need for a skilled surgical training specialist. She assisted in positioning, draping, retraction, and closure of the wound.
[2022-12-04] MEDS ORDERED: MAGNESIUM HYDROXIDE 2,400 MG/10 ML CUP PO PRN (15:24)
[2022-12-04] MEDS ORDERED: ONDANSETRON 4 MG/2 ML VIAL IVP PRN (15:24)
[2022-12-04] MEDS ORDERED: NALOXONE 0.4 MG/ML 1 ML VIAL IV PRN (15:24)
[2022-12-04] MEDS ORDERED: bisacodyL 10 MG SUPP RECTAL PRN (15:24)
[2022-12-04] MEDS ORDERED: HYDROmorphone 0.5 MG/0.5 ML SYRINGE IVP PRN ×3 (15:24)
[2022-12-04] MEDS ORDERED: NA PHOS,M-B/NA PHOS,DI-BA 133 ML ENEMA RECTAL PRN (15:24)
[2022-12-04] MEDS: ROPIVACAINE 1,100 MG, SODIUM CHLORIDE 0.9% 500 ML 330 ML, EMPTY PAIN BALL 1 EACH MISCELLANE PRN ×4 (15:30→17:08)
[2022-12-04] MEDS ORDERED: HYDROcodone/APAP 7.5-325MG 1 EACH TAB PO PRN (15:31)
--- NOTE | 2022-12-04 16:09 | XR ---
EXAMINATION TYPE: XR knee limited LT DATE OF EXAM: 12/04/2022 CLINICAL HISTORY: Postoperative evaluation Two views of the left knee are submitted. Identified are changes of total knee arthroplasty with fem oral and tibial components appearing well seated. Postsurgical soft tissue changes are noted. Align ment is anatomic.
[2022-12-04] MEDS: HYDROmorphone 0.5 MG/0.5 ML SYRINGE IVP PRN ×2 (16:35→18:42)
[2022-12-04] MEDS: HYDROcodone/APAP 7.5-325MG 1 EACH TAB PO PRN (20:57)
[2022-12-04] MEDS: SENNOSIDES-DOCUSATE SODIUM 1 EACH TAB PO SCH (20:57)
[2022-12-04] MEDS: ASPIRIN 325 MG TAB PO SCH (20:57)
[2022-12-04] MEDS: SODIUM CHLORIDE 0.9% 1,000 ML IV SCH (22:55)
[2022-12-05] MEDS: HYDROcodone/APAP 7.5-325MG 1 EACH TAB PO PRN ×4 (02:38→20:39)
[2022-12-05] MEDS: SODIUM CHLORIDE 0.9% 1,000 ML IV SCH ×2 (06:21→23:26)
[2022-12-05] MEDS: LACTATED RINGERS 1,000 ML IV SCH (06:21)
--- NOTE | 2022-12-05 06:50 | P.PN ---
Progress Note - Text Progress Note Date: 12/05/22 Postoperative day # 1 status post total knee arthroplasty, and adductor canal catheter placed for postoperative analgesia, currently at ropivacaine 0.2% 8 mL per hour and continuous infusion, visual analogue scale is 3/10, patient using oral pain medication for breakthrough pain. Assessment and plan= Acute postoperative pain, adductor canal catheter for pain control, pain is well controlled we'll continue the same management.
--- NOTE | 2022-12-05 07:51 | P.PN ---
Subjective Progress Note Date: 12/05/22 Principal diagnosis: Primary osteoarthritis left knee. Status post total left knee arthroplasty. This is a 71-year-old female who is postop day #1 status post total left knee arthroplasty. The patient is doing well from an orthopedic standpoint. She does have concern about going home today. She would like more day for physical therapy and care. She denies nausea, vomiting or diarrhea. Objective - Vital Signs Vital signs: Vital Signs Temp 98.3 F 12/05/22 07:35 Pulse 56 L 12/05/22 07:35 Resp 17 12/05/22 07:35 BP 108/67 12/05/22 07:35 Pulse Ox 93 L 12/05/22 07:35 FiO2 Intake & Output 12/04/22 12/05/22 12/05/22 18:59 06:59 18:59 Intake Total 1051 700 Output Total 50 Balance 1001 700 Weight 101.6 kg 101.6 kg Intake: IV 1051 Intake, IV Titration 700 Amount Sodium Chloride 0.9% 1, 600 000 ml @ 70 mls/hr IV . [id number] [facility] Rx#:[id number] ceFAZolin 2 gm In Sodium 100 Chloride 0.9% 50 ml @ 100 mls/hr IVPB Q8H [facility] Rx#: [id number] Output: Estimated Blood Loss 50 Other: # Voids 2 - Exam This is a pleasant 71-year-old female in no acute distress. She is alert and oriented 3. Exam of the left knee reveals that her dressing is clean, dry and intact. She has full foot and ankle motion without difficulty or pain. Neurova scular status to the lower extremity is intact. Assessment and Plan (1) Primary localized osteoarthritis of left knee Current Visit: Yes Status: Acute Code(s): M17.12 - UNILATERAL PRIMARY OSTEOARTHRITIS, LEFT KNEE SNOMED Code(s): 462865988221727 (2) Status post total left knee replacement Current Visit: Yes Status: Acute Code(s): Z96.652 - PRESENCE OF LEFT ARTIFICIAL KNEE JOINT SNOMED Code(s): 3335183039264 Plan: The clinical findings are discussed with the patient. We will continue care and begin physical therapy today. We are planning discharge to home tomorrow.
[2022-12-05] MEDS: ASPIRIN 325 MG TAB PO SCH ×2 (08:24→20:39)
[2022-12-05 14:00] LABS: Basophils # (A) 0.01 X 10*3/uL (0.00-0.10); Basophils % (A) 0.1 %; Eosinophils # (A) 0 X 10*3/uL (0.04-0.35); Eosinophils % (A) 0 %; HCT 38.2 % (37.2-46.3); HGB 12.3 g/dL (12.0-15.0); Immature Grans, Automated 0.5 %; Lymphocytes # (A) 1.32 X 10*3/uL (0.90-5.00); Lymphocytes % (A) 9.2 %; MCH 32.3 pg (27.0-32.0); MCHC 32.2 g/dL (32.0-37.0); MCV 100.3 fL (80.0-97.0); Mean Platelet Volume 9.8 fL (9.5-12.2); Monocytes # (A) 1.49 X 10*3/uL (0.20-1.00); Monocytes % (A) 10.3 %; NRBC Per 100 WBC 0 /100 WBCS (0.0-0.0); Neutrophils # (A) 11.51 X 10*3/uL (1.80-7.70); Neutrophils % (A) 79.9 %; Platelet Count 200 X 10*3/uL (140-440); RBC 3.81 X 10*6/uL (4.10-5.20); RDW 12.6 % (11.5-14.5)
[2022-12-05] MEDS: SENNOSIDES-DOCUSATE SODIUM 1 EACH TAB PO SCH (20:39)
[2022-12-06] MEDS: HYDROcodone/APAP 7.5-325MG 1 EACH TAB PO PRN ×3 (02:41→13:07)
[2022-12-06 07:14] VITALS: BP 105/58; PULSE 74; RESP 17; TEMP 97.7
[2022-12-06] MEDS: ASPIRIN 325 MG TAB PO SCH (08:06)
--- NOTE | 2022-12-06 11:09 | P.DS ---
Providers Expected date of discharge: 12/06/22 Attending physician: Huey Briceño Consults: 12/04/22 15:24 Consult Physician Routine Consulting Provider: Carlyle Thompson Consult Reason/Comments: medical management Do you want consulting provider notified?: Yes Primary care physician: Carlyle Thompson - Discharge Diagnosis(es) (1) Primary localized osteoarthritis of left knee Current Visit: Yes Status: Acute (2) Status post total left knee replacement Current Visit: Yes Status: Acute Hospital Course: This is a 71-year-old female with known history of degenerative arthritis of the left knee. The patient presented for evaluation as an outpatient. After discussion and consideration patient elects to proceed with total knee arthroplasty. The patient is seen preoperatively by Dr. Briceño and medically cleared for surgery by their primary care physician. Patient is admitted to [facility] on 12/04/2022 for total knee arthroplasty. The procedure is performed without complication or sequelae. The patient is doing well postoperatively. Labs and vital signs are stable on day of discharge. On day of discharge patient's knee incision is healing well. There is minimal erythema. There is no drainage noted at this time. There is minimal soft tissue swelling to the knee. Patient has full foot and ankle motion without difficulty or pain. Calf is soft and nontender to palpation. Neurovascular status to the left lower extremity is intact. Patient is discharged home in good condition. Please see med rec for accurate list of home medications. Plan - Discharge Summary Discharge Rx Participant: Yes New Discharge Prescriptions: New HYDROcodone/APAP 7.5-325MG [[place] 7.5-325] 1 - 2 tab PO Q6H PRN #32 tab PRN Reason: Pain Sennosides [Senokot] 2 tab PO DAILY PRN #60 tablet PRN Reason: Constipation Aspirin 325 mg PO BID #60 tab No Action Ascorbic Acid [Vitamin C] 500 mg PO DAILY Multivitamin,Therapeutic [Thera] 1 tab PO DAILY Calcium/Magnesium/Zinc [Zlivayv-Npsswvzln-Itdd Tablet] 1 tab PO DAILY Letrozole 2.5 mg PO HS Acetaminophen [Tylenol Extra Strength] 500 mg PO TID Aspirin 81 mg PO DAILY HYDROcodone/APAP 7.5-325MG [[place] 7.5-325] 1 - 2 tab PO Q6H PRN #32 tab PRN Reason: Pain Discharge Medication List Ascorbic Acid [Vitamin C] 500 mg PO DAILY 10/19/18 [History] Calcium/Magnesium/Zinc [Lvzkuge-Eedsefxdh-Qztr Tablet] 1 tab PO DAILY 10/19/18 [History] Multivitamin,Therapeutic [Thera] 1 tab PO DAILY 10/19/18 [History] Letrozole 2.5 mg PO HS 05/03/20 [History] Acetaminophen [Tylenol Extra Strength] 500 mg PO TID 04/12/22 [History] HYDROcodone/APAP 7.5-325MG [[place] 7.5-325] 1 - 2 tab PO Q6H PRN #32 tab 04/20/22 [Rx] Aspirin 81 mg PO DAILY 11/27/22 [History] Aspirin 325 mg PO BID #60 tab 12/04/22 [Rx] HYDROcodone/APAP 7.5-325MG [[place] 7.5-325] 1 - 2 tab PO Q6H PRN #32 tab 12/04/22 [Rx] Sennosides [Senokot] 2 tab PO DAILY PRN #60 tablet 12/04/22 [Rx] Follow up Appointment(s)/Referral(s): [facility],Equipment [NON-STAFF] - As Needed (*Please call [facility] once home to arrange delivery of the Continous Passive Motion (CPM) machine. ) Huey Briceño, [Doctor of Osteopathic Medicine] - 12/17/22 10:30 am A Visiting Nurse, [NON-STAFF] - 1-2 Days ([facility] homecare will call you to arrange home nursing and physical therapy visits. ) Activity/Diet/Wound Care/Special Instructions: Weightbearing as tolerated with walker. CPM 5-6 hours daily as tolerated. Leave dressing intact. Dressing may be removed by home care nurse or by patient in 7 days. Then change dressing twice daily until follow up. May shower with initial dressing intact and after removal. If dressing become saturated, please remove. Please take aspirin 325mg twice daily for 30 days to prevent blood clots. Recommend use of compression stockings daily until follow up to help prevent swelling and blood clots. May remove at night before sleeping. Please follow-up with [facility] in 2 weeks and call with any questions or concerns, . Discharge Disposition: HOME WITH HOME HEALTH SERVICES
== END 2022-12-06 13:17 | disposition home health service (06) ==
LOC: OR 11:16 → 4SSUR 15:23 → OR 12-06 13:17
PROVIDERS: ATTEND Orthopaedic Surgery
DX: M17.12 Unilateral primary osteoarthritis, left knee (principal); G89.18 Other acute postprocedural pain; Z85.3 Personal history of malignant neoplasm of breast; F17.200 Nicotine dependence, unspecified, uncomplicated; F10.20 Alcohol dependence, uncomplicated; Z88.0 Allergy status to penicillin; Z79.1 Long term (current) use of non-steroidal anti-inflammatories (NSAID); Z79.899 Other long term (current) drug therapy; Z96.651 Presence of right artificial knee joint
CPT/HCPCS: 27447; 97116; 97161; 64448; 64999; 85025; 73560; C1713; C1776; C1751; J2250; J1100; J0690 ×3; J2405; J2795; J1170 ×2

== ENCOUNTER → 2022-12-17 | Outpatient (CLI) | payer MEDICARE, OTHER ==
--- NOTE | 2022-12-17 13:09 | US ---
EXAMINATION TYPE: US venous doppler duplex LE LT DATE OF EXAM: 12/17/2022 12:20 PM COMPARISON: NONE CLINICAL INDICATION: Female, 72 years old with history of M25.561 PAIN IN LT KNEE; Left knee replacem ent x 2 weeks ago. Swelling and bruising. Not on blood thinners SIDE PERFORMED: Left TECHNIQUE: The lower extremity deep venous system is examined utilizing real time linear array sonog antolin with graded compression, doppler sonography and color-flow sonography. VESSELS IMAGED: Common Femoral Vein Deep Femoral Vein Greater Saphenous Vein * Femoral Vein Popliteal Vein Small Saphenous Vein * Proximal Calf Veins (* superficial vessels) Limited due to patient body habitus Left Leg: Negative for DVT IMPRESSION: No evidence for DVT at this time.
== END | disposition home or self-care (01) ==
LOC: RADUSWWP 12:01
PROVIDERS: ATTEND Orthopaedic Surgery
DX: M25.562 Pain in left knee (principal)

== ENCOUNTER → 2023-12-09 | Outpatient (CLI) | payer MEDICARE, OTHER ==
--- NOTE | 2023-12-09 17:02 | BD ---
EXAMINATION TYPE: Axial Bone Density DATE OF EXAM: 12/09/2023 CLINICAL HISTORY: 72 years old Female. ICD-10 CODE: Z78.0 ASYMPTOMATIC MENOPAUSAL STATE Height: 65 Weight: 228 FRAX RISK QUESTIONS: Family History (Parent hip fracture): no History of Fracture in Adulthood: no Secondary Osteoporosis: no RISK FACTORS HISTORY OF: Surgery to Spine/Hip(right/left)/Wrist (right/left): no MEDICATIONS: Thyroid Medications: no Osteoporosis Medications: no EXAM MEASUREMENTS: Bone mineral densitometry was performed using the Liquid Air Lab System. Bone mineral density as measured about the Lumbar spine is: ----- L1-L4(G/cm2): 0.968 T Score Values are as follows: ----- L1: -1.4 ----- L2: -2.5 ----- L3: -1.4 ----- L4: -1.9 ----- L1-L4: -1.8 Z Score Values are as follows: ----- L1: -0.9 ----- L2: -2.0 ----- L3: -0.8 ----- L4: -1.4 ----- L1-L4: -1.2 Bone mineral density has: Increased 1.5% since study of: 10/24/2021 Bone mineral density about the R hip (g/cm2): 0.667 Bone mineral density about the L hip (g/cm2): 0.732 T Score values are as follows: -----R Neck: -2.6 -----L Neck: -2.0 -----R Total: -2.7 -----L Total: -2.2 Z Score values are as follows: -----R Neck: -1.6 -----L Neck: -1.0 -----R Total: -2.0 -----L Total: -1.5 Bone mineral density has: Decreased -7.0% since study of: 10/24/2021 FRAX%s: The graph provided illustrates a 14.7% chance for a major osteoporotic fx and a 4.0% chance f or the hips probability for fx in 10 years time. IMPRESSION: Osteoporosis (T Score less than -2.5). There is increased fracture risk and therapy is usually indicated based on age. Re-Screen 1-2 years. NOTE: T-SCORE=SD OF THE YOUNG ADULT MEAN.
== END | disposition home or self-care (01) ==
LOC: RADBDWWP 14:23
PROVIDERS: ATTEND Internal Medicine Hematology & Oncology
DX: M81.0 Age-related osteoporosis without current pathological fracture (principal); M85.89 Other specified disorders of bone density and structure, multiple sites; Z78.0 Asymptomatic menopausal state
CPT/HCPCS: 77080

== ENCOUNTER → 2024-04-28 | Outpatient (CLI) | payer MEDICARE ==
--- NOTE | 2024-04-28 11:21 | MM ---
Reason for Exam: Hx of breast cancer, mastectomy. Last mammogram was performed 1 year(s) and 6 month(s) ago. Patient History: Menarche at age 15. First Full-Term at age 21. Postmenopausal. Patient has history of breast feeding. Breast cancer, right, age 67. Previous chest radiation therapy. 1971, Benign Excisional Biopsy on the right side. 07/17/2018, Lumpectomy on the Right side. 08/2018, Mastectomy on the Right side. 07/17/2018, Malignant Core Biopsy on the right side. 06/23/2018, Malignant Core Biopsy on the right side. 2018, Radiation Therapy on the right side. Maternal aunt had breast cancer. Maternal aunt had breast cancer. Sister had ovarian cancer at or over age 50. Prior Study Comparison: 06/20/2020 Left Diagnostic Mammogram, [facility]. 10/24/2021 Bilateral Screening Mammogram, [facility]. 10/26/2022 Left MG 3D diag mammo w/cad LT, [facility]. Tissue Density: Left: The breasts are heterogeneously dense, which may obscure small masses. Findings: Analyzed By CAD. No evidence for left breast mass or distortion. No suspicious microcalcifications. Overall Assessment: Negative, BI-RAD 1 Management: Diagnostic Mammogram of the left breast in 1 year. . Results were given to the patient verbally at the time of exam. Patient should continue monthly self-breast exams. A clinical breast exam by your physician is recommended on an annual basis. This exam should not preclude additional follow-up of suspicious palpable abnormalities. Note on Tenisha scores and lifetime risk: 1. A Tenisha score greater than 3% is considered moderate risk. If this is the case, consider specialist referral to assess eligibility for a risk reducing agent. 2. If overall lifetime risk for the development of breast cancer is 20% or higher, the patient may qualify for future screening with alternating mammogram and breast MRI. [facility], , 04/28/2024 11:17 AM. Electronically signed and approved by: Jett Lange M.D. Radiologis
== END | disposition home or self-care (01) ==
LOC: RADMAMWWP 10:53
PROVIDERS: ATTEND Internal Medicine Hematology & Oncology
CPT/HCPCS: 77061; 77065

== ENCOUNTER → 2024-08-04 | Day surgery (SDC) | payer MEDICARE ==
[2024-07-30 09:27] VITALS: BMI 37.1
[~2024-08-04] MED LIST changes: -ACETAMINOPHEN TAB 500 MG TAB PO PRN; -DEXAMETHASONE SOD PHOSPHATE 4 MG/ML 1 ML VIAL IV ONE; -GABAPENTIN 300 MG CAP PO PRN; -LIDOCAINE 1% (10MG/ML) FOR IV START INTRADERMA PRN; +LIDOCAINE 2% (PF) 20 MG/ML 5 ML VIAL ONE; -MELOXICAM 7.5 MG TAB PO PRN; -MIDAZOLAM 2 MG/2 ML VIAL IV PRN; -ONDANSETRON 4 MG/2 ML VIAL IVP ONE; +PROPOFOL 10 MG/ML 20 ML VIAL IV ONE; -TRANEXAMIC ACID IN NACL,ISO-OS 1,000 MG in SALINE 1 100ML.BAG IVPB PRN
[2024-08-04 08:47] VITALS: TEMP 98.6
[2024-08-04] MEDS: LACTATED RINGERS 1,000 ML IV SCH (08:47)
[2024-08-04] MEDS: IV FLUID CONTINUATION 1,000 ML IV ONE (08:47)
[2024-08-04] MEDS: LIDOCAINE 1% (10MG/ML) FOR IV START INTRADERMA STA (08:47)
--- NOTE | 2024-08-04 09:42 | P.GSHP ---
History of Present Illness H&P Date: 08/04/24 Chief Complaint: Colon cancer screening 73-year-old female here for colonoscopy. Has not had a colonoscopy previously. No bowel complaints. Family history of colon cancer in her sister. Patient with history of breast cancer. Past Medical History Past Medical History: Cancer, Osteoarthritis (OA) Additional Past Medical History / Comment(s): RT BREAST CANCER. Left LEG & rt knee pain FROM ACCIDENT IN 2009 USES CANE. History of Any Multi-Drug Resistant Organisms: None Reported Past Surgical History: Appendectomy, Breast Surgery, Joint Replacement, Orthopedic Surgery Additional Past Surgical History / Comment(s): NL WITH LUMPECTOMY ON 07/17/18. RT BREAST BX 06/23/18. benign lump from neck removed 2013. left leg and ankle orif, with metal, later removed. RT breast mastectomy 09/04/2018, bilateral knee replaced Past Anesthesia/Blood Transfusion Reactions: Postoperative Nausea & Vomiting (PONV) Additional Past Anesthesia/Blood Transfusion Reaction / Comment(s): HARD TIME WAKING UP, no blood transfusion Smoking Status: Current every day smoker - Past Family History Sister(s) Family Medical History: Cancer Additional Family Medical History / Comment(s): one sister ovarian, one sister colon and lung ca Father Family Medical History: Cancer Additional Family Medical History / Comment(s): bladder Brother(s) Family Medical History: Cancer Additional Family Medical History / Comment(s): Lung Medications and Allergies Home Medications Medication Instructions Recorded Confirmed Type Ascorbic Acid [Vitamin C] 1,000 mg PO DAILY 10/19/18 07/30/24 History Calcium/Magnesium/Zinc 1 tab PO DAILY 10/19/18 07/30/24 History [Cyzusna-Jclzdzykn-Hezw Tablet] Multivitamin,Therapeutic [Thera] 1 tab PO DAILY 10/19/18 07/30/24 History Aspirin 81 mg PO DAILY 11/27/22 07/30/24 History Acetaminophen [Acetaminophen 8 hr] 650 mg PO DAILY 07/30/24 07/30/24 History Cholecalciferol [Vitamin D3 (25 1 tab PO DAILY 07/30/24 07/30/24 History Mcg = 1000 Iu)] Cyanocobalamin (Vitamin B-12) 1,000 mcg PO DAILY 07/30/24 07/30/24 History [Vitamin B-12] Ibuprofen [Motrin] 400 mg PO BID 07/30/24 07/30/24 History Turmeric/Turmeric Root Extract 1 each PO DAILY 07/30/24 07/30/24 History [Turmeric 450-50 mg Capsule] Vitamin E (Dl,Tocopheryl Acet) 1 tab PO DAILY 07/30/24 07/30/24 History [Vitamin E (1000 Iu = 450 MG)] Allergies Allergy/AdvReac Type Severity Reaction Status Date / Time Penicillins Allergy Severe Anaphylaxis Verified 08/04/24 08:36 Surgical - Exam Vital Signs Temp Pulse Resp BP Pulse Ox 98.6 F 77 16 127/63 96 08/04/24 08:43 08/04/24 08:43 08/04/24 08:43 08/04/24 08:43 08/04/24 08:43 Physical exam: General: Well-developed, well-nourished HEENT: Normocephalic, sclerae nonicteric Abdomen: Nontender, nondistended Extremities: No edema Neuro: Alert and oriented Assessment and Plan (1) Colon cancer screening Narrative/Plan: Will proceed with colonoscopy at this time. Current Visit: Yes Status: Acute Code(s): Z12.11 - ENCOUNTER FOR SCREENING FOR MALIGNANT NEOPLASM OF COLON SNOMED Code(s): 775149971
--- NOTE | 2024-08-04 10:00 | P.PCN ---
Date of Procedure: 08/04/24 Procedure(s) Performed: PREOPERATIVE DIAGNOSIS: Colon cancer screening POSTOPERATIVE DIAGNOSIS: Diverticulosis PROCEDURE: Colonoscopy ANESTHESIA: MAC SURGEON: Joaquim Odom M.D. SPECIMENS: None ENDOSCOPIC PROCEDURE: The patient was placed on the endoscopy table in the left decubitus position. The Olympus colonoscope was inserted into the anus and passed under direct visualization to the base of the cecum. The appendiceal orifice was visualized. From that point the scope was slowly withdrawn inspe cting all surfaces carefully. There were no neoplastic inflammatory or polypoid lesions throughout the cecum, ascending, transverse, descending, sigmoid and rectum. There was mild left-sided diverticulosis noted. The patient's prep was slightly suboptimal limiting our visualization of some of the mucosal surfaces. Digital rectal examination was normal. The patient was taken to the recovery ro om in stable condition per anesthesia guidelines. RECOMMENDATIONS: Resume diet. Repeat colonoscopy 5 years.
[2024-08-04 10:37] VITALS: BP 129/64; PULSE 65; RESP 20
== END ==
LOC: ORWHC2ENDO 08:05
PROVIDERS: ATTEND Surgery
DX: Z12.11 Encounter for screening for malignant neoplasm of colon (principal); K57.30 Diverticulosis of large intestine without perforation or abscess without bleeding; Z91.89 Other specified personal risk factors, not elsewhere classified; F17.210 Nicotine dependence, cigarettes, uncomplicated; Z79.82 Long term (current) use of aspirin; Z79.899 Other long term (current) drug therapy; Z85.3 Personal history of malignant neoplasm of breast; Z80.0 Family history of malignant neoplasm of digestive organs; Z88.0 Allergy status to penicillin
CPT/HCPCS: 45378; J2704; J2003